=== PATIENT | male | born 1960 | race Caucasian/White ===

== ENCOUNTER 2023-07-18 09:27 | Outpatient (OUT) | payer OTHER, SELFPAY ==
--- NOTE | 2023-07-18 09:45 | XR_ITS ---
The [address] [address] Patient Name: GABRIEL VERDIN MRN: [id number] date: 1960 Sex: M Assigned Patient Location: RAD Current Patient Location: [facility] Accession/Order Number: [id number] Exam Date: 07/18/2023 09:55 Report Date: 07/18/2023 11:06 At the request of: GRANT HARDY Procedure: XR abdomen 1V EXAM: XR abdomen 1V HISTORY: Kidney Stone COMPARISON: None. TECHNIQUE: AP view of the abdomen. FINDINGS: Nonobstructive bowel gas pattern is noted. There is no suspicious calcification. The osseous structures are intact. XR/XR abdomen 1V IMPRESSION: Nonobstructive bowel gas pattern. Electronically authenticated by: BEATRIS JOHNSON Date: 07/18/2023 11:06
== END 2023-07-18 09:28 | disposition home or self-care (01) ==
LOC: RAD 09:36
PROVIDERS: PCP Family Medicine; Visit Provider Urology
DX: N20.0 Calculus of kidney (principal)
CPT/HCPCS: 74018

== ENCOUNTER 2024-01-17 08:30 | Outpatient (OUT) | payer OTHER, SELFPAY ==
[2024-01-17 09:05] LABS: Basophils Absolute Auto 0.1 10^3/uL (0.0-0.1); Basophils Percent Auto 0.8 % (0.2-2.0); Eosinophils Absolute Auto 0.3 10^3/uL (0.0-0.7); Eosinophils Percent Auto 3.4 % (0.9-7.0); Hematocrit 41.6 % (42.0-54.0); Hemoglobin 14.1 g/dL (14.0-18.0); Immature Granulocytes Abs Auto 0.03 10^3/uL (0.00-0.03); Immature Granulocytes Pct Auto 0.3 % (0.0-0.5); Lymphocytes Absolute Auto 1.9 10^3/uL (1.2-3.8); Lymphocytes Percent Auto 21.9 % (20.5-60.0); Mean Corpuscular HGB Conc 33.9 g/dL (29.9-35.2); Mean Corpuscular Hemoglobin 29.3 pg (25.9-34.0); Mean Corpuscular Volume 86.5 fL (80.0-94.0); Mean Platelet Volume 9.7 fL (9.5-13.5); Monocytes Absolute Auto 1.2 10^3/uL (0.3-0.8); Monocytes Percent Auto 13.4 % (1.7-12.0); Neutrophils Absolute Auto 5.2 10^3/uL (1.4-6.5); Neutrophils Percent Auto 60.2 % (43.0-75.0); Platelet Count 222 10^3/uL (150-450); Red Blood Count 4.81 10^6/uL (4.70-6.10); Red Cell Distribution Width 12.4 % (11.0-15.0); White Blood Count 8.7 10^3/uL (4.0-11.0)
[2024-01-17 09:54] LABS: Alanine Aminotransferase 21 U/L (16-63); Albumin Globulin Ratio 0.9; Alkaline Phosphatase 49 U/L (46-116); Anion Gap 11.3; Aspartate Amino Transferase 15 U/L (15-37); BUN Creatinine Ratio 14.9; Bilirubin Total 0.5 mg/dL (0.2-1.0); Carbon Dioxide 27.8 mmol/L (21.0-32.0); Chloride 104 mmol/L (98-107); Chol HDL Ratio 3.9; Cholesterol 209 mg/dL (<=200); Estimated GFR (African America >60 (>=60); Estimated GFR (Non-African Ame >60 (>=60); Globulin 3.3 g/dL; Glucose 97 mg/dL (74-106); HDL Cholesterol 53 mg/dL (40-60); Potassium 4.1 mmol/L (3.5-5.1); Sodium 139 mmol/L (136-145); Total Protein 6.3 g/dL (6.4-8.2); Triglycerides 58 mg/dL (<=150); VLDL CHOLESTEROL 11.6 mg/dL
== END 2024-01-17 08:31 | disposition home or self-care (01) ==
LOC: LAB 08:32
PROVIDERS: PCP Nurse Practitioner; Visit Provider Nurse Practitioner
DX: Z00.00 Encounter for general adult medical examination without abnormal findings (principal); Z12.5 Encounter for screening for malignant neoplasm of prostate
CPT/HCPCS: 36415; 80053; 80061; 85025; G0103

== ENCOUNTER 2024-08-07 10:57 | Outpatient (OUT) | payer OTHER, SELFPAY ==
--- NOTE | 2024-08-07 11:06 | XR_ITS ---
The [address] [address] Patient Name: GABRIEL VERDIN MRN: [id number] date: 1960 Sex: M Assigned Patient Location: [facility] Current Patient Location: Accession/Order Number: [id number] Exam Date: 08/07/2024 11:08 Report Date: 08/09/2024 04:46 At the request of: GRANT HARDY Procedure: XR abdomen 1V EXAMINATION: XR abdomen 1V HISTORY: Kidney Stone COMPARISON: XR abdomen 07/18/2023 FINDINGS: KIDNEY/URETER - RIGHT: No visible renal or ureteral calcifications. KIDNEY/URETER - LEFT: No visible renal or ureteral calcifications. PELVIS: No visible ureteral stone. Stable tiny pelvic calcifications favoring phleboliths. BOWEL: No abnormal dilation or deviation. BONES: No acute abnormality. OTHER: Negative. No abnormal gaseous collections. XR/XR abdomen 1V IMPRESSION: 1. No appreciable urinary tract calculi. Electronically authenticated by: ERNESTO HANLEY Date: 08/09/2024 04:46
== END 2024-08-07 10:58 | disposition home or self-care (01) ==
LOC: RAD 11:00
PROVIDERS: PCP Nurse Practitioner; Visit Provider Urology
DX: N20.0 Calculus of kidney (principal)
CPT/HCPCS: 74018

== ENCOUNTER 2024-08-14 08:09 | Outpatient (OUT) | payer OTHER, SELFPAY ==
--- OUTSIDE RECORDS SUMMARY | 2024-08-14 08:14 | XMS_ITS | CCD ---
Author Organization [facility] Care Team Providers Care Station Inspector Name Role Phone DR ALL ESCUDERO Admitting Unavailable DR ALL ESCUDERO Consulting Unavailable DR ALL ESCUDERO Attending Unavailable OCCOQUAN, DR ELLIOTT Primary Care Unavailable DAYAN, DR ERNESTO Daguherty Consulting Unavailable VLADIMIR DING Primary Care Physician VLADIMIR DING Attending Unavailable VLADIMIR DING Referring Unavailable VLADIMIR DING Primary Care Unavailable VLADIMIR DING Primary Care Unavailable All ESCUDERO Attending Unavailable All ESCUDERO Attending Unavailable VLADIMIR DING Primary Care Unavailable Medications Current Medications Medication Drug Class(es) Dates Sig (Normalized) Sig (Original) tadalafil 20 mg oral tablet (2 sources) Phosphodiesterase 5 Inhibitor Start: 07-26-2023 take 1 tablet by mouth every hour as needed, then take 1 tablet by mouth every twenty-four hours as needed tadalafil 20 mg Tab 20 mg = 1 tab(s), Oral, As Directed, PRN for erectile dysfunction, Take 1 hour prior to sexual intercourse. Do not exceed 20mg within 24 hours., # 30 tab(s), Refills(s) 3, Pharmacy: [id number], 183, cm, 07/26/23 10:13:00 EST, Height/Length Dosing, 72.2, kg, 07/26/23 10:13:00 EST, Weight Dosing Start Date: 07/26/23 Status: Ordered Problems Problem Classification Problem Date Documented Da te Episodic/Chronic Calculus of urinary tract (10 sources) Calculus of kidney; Translations: [History of calculus of kidney] Onset: 02-23-2022 Episodic Genitourinary symptoms and ill-defined conditions (2 sources) Microscopic hematuria; Translations: [Asymptomatic microscopic hematuria] Onset: 07-23-2023 Episodic Hyperplasia of prostate (5 sources) Benign prostatic hyperplasia without lower urinary tract symptoms; Translations: [Benign prostatic hypertrophy without outflow obstruction] Onset: 02-28-2022 Chronic Other male genital disorders (4 sources) Male erectile dysfunction, unspecified; Translations: [Erectile dysfunction] Onset: 07-23-2023 Chronic Other screening for suspected conditions (not mental disorders or infectious disease) (4 sources) Encounter for screening for malignant neoplasm of prostate; Translations: [Screening for malignant neoplasm done] Onset: 07-23-2023 Episodic Unclassified (2 sources) Asymptomatic microscopic hematuria 07-08-2020 Unclassified (2 sources) Patient encounter status 07-23-2023 Unclassified (1 source) Annual Exam Onset: 01-08-2024 Results Test Name Value Interpretation Reference Range Facil [facility] Urology Office/Clinic Noteon 08-10-2024 Urology Office/Clinic Note Urology Office/Clinic Note Chief Complaint 1 year with KUB and PSA HPI Staff 1 year follow up w/PSA & KUB. Pt. C/O getting up 1x at night and mild stop/go stream Previous DX: asymptomatic microscopic hematuria, BPH w/urinary obstruction, ED, HX of kidney stones *Tadalafil 10mg PRN therapy KUB done 08/07/24 PSA 12/07/22 - 0.77 01/17/24 - 1.20 History of Present Illness Tests reviewed: UA, PSA, KUB I have reviewed the previous health record information and history for this patient from Dr. Escudero. I have reviewed and verified the staff HPI to be accurate for this encounter. Review of Systems PHQ Score Initial Depression Screen Score: 0 SCORE ROS - Provider Constitutional: denies weight loss, denies hot flashes. Eyes: denies eye problems. Gastrointestinal: denies nausea, denies vomiting. Cardiovascular: denies chest pain or angina. Integumentary: no dryness Musculoskeletal: denies musculoskeletal symptoms. ENMT: denies otolaryngeal symptoms. Respiratory: no shortness of breath. Heme/Lymph: denies easy bleeding tendency, denies easy bruising tendency. Psychiatric: no confusion, no anxiety. Genitourinary: See HPI. Physical Exam Vitals & Measurements HR: 64(Peripheral) RR: 19 BP: 133/75 HT: 72 in HT: 183 cm WT: 72.7 kg WT: 160.276 lb BMI: 21.71 General Appearance: alert, no distress, well nourished, well developed male. MAGDY ~ 30 g, no nodules. Assessment/Plan 1. Elevated PSA (R97.20: Elevated prostate specific antigen [PSA]) PSA: 07/2020 - 0.59 02/23/22 - 0.60 12/07/22 - 0.77 01/17/24 - 1.20 *had sex the day prior No recent PSA since December since PCP was monitoring annually. Although pt had prostate manipulation the day prior, PSA still elevated/doubled so will monitor more closely. MAGDY ~ 30 g, no nodules. Follow up 1 yr with PSA pending level below or sooner if needed. Pt understands and agrees with plan. -PSA soon (not in 48 hrs due to MAGDY today). If back to baseline, f/u in 1 yr with PSA total. If elevated, f/u sooner, consider MRI. 2. BPH without urinary obstruction (N40.0: Benign prostatic hyperplasia without lower urinary tract symptoms) IPSS 2 (2). Not taking any BPH meds. 3. ED (erectile dysfunction) (N52.9: Male erectile dysfunction, unspecified) Tadalafil 20 mg PRN. 4. Personal history of kidney stones (Z87.442: Personal history of urinary calculi) CT AP w/o Con 06/08/20 - A 2.5 mm stone at the distal L ureter proximal to the terminal ureter and UVJ. Pt had passed a stone. Stone Analysis 07/18/20 - 70% CaOx mono, 30% CaOx di. KUB 12/28/20 - Neg. KUB 02/23/22 - Neg. KUB 07/18/23 - Neg. KUB 08/07/24 - Neg. Reviewed imaging with pt. -KUB in 1 yr. 5. Asymptomatic microscopic hematuria (R31.21: Asymptomatic microscopic hematuria) UA shows moderate blood wo signs of infection. Denies gross hematuria. -Pt knows to notify the office if they were to experiences gross hematuria or clots. As noted the patient is doing well. No change in his voiding pattern. PSA levels are as noted. The PSA had been ordered by PCP back in December and is much higher than it was previously. I stressed the importance of close follow-up in the setting. He does relate that he did have ejaculation within 48 hours of that test which could have influenced it. Will repeat PSA now, free and total. Will subsequently see him again in 1 year with both PSA and KUB. Current abdominal x-ray reveals no evidence of urolithiasis. He agrees with the plan. Negative MAGDY today Viewed UA, ordered KUB , ordered PSA Follow-up With When Contact Information HAYLEY ROSE, All [place], URL [address] [place] [id number] Additional Instructions: 1 yr with PSA pending PSA level soon Patient Education Prostate Cancer Screening I, Bhavani Acevedo, personally scribed for Dr. Escudero on 08/10/2024 08:54:40. . Documentation recorded by the scribe, Bhavani Acevedo, accurately reflects the services(s) I performed and decisions made by me. Authenticated by Dr. Escudero on 08/10/2024 09:01:16. Portions of this record may have been created with voice recognition artificial intelligence software, specifically [employer], [employer] and or [employer]. Substitutions may have occurred due to the inherent limitations of voice recognition and artificial intelligence software. Problem List/Past Medical History Ongoing Asymptomatic microscopic hematuria BPH without urinary obstruction ED (erectile dysfunction) Elevated PSA Kidney stone Personal history of kidney stones Prostate cancer screening Historical No qualifying data Procedure/Surgical History Tonsillectomy. Medications tadalafil 20 mg Tab, 20 mg= 1 tab(s), Oral, As Directed, PRN, 3 refills Allergies No Known Allergies Social History Alcohol - Low Risk, 07/08/2020 Never., 08/07/2024 Substance Abuse Never., 08/07/2024 To (more content not included)... Normal [facility] Comment on above: Result Comment: Electronically Signed By : All ESCUDERO MD\.br\Date and Time Signed: 08/10/24 09:02 EST\.br\Electronically Co-Signed By: Bhavani Acevedo\.br\Date and Time Co-Signed: 08/10/24 08:56 EST XR KUB 1 VIEWon 02-23-2022 XR KUB 1 VIEW EXAMINATION: XR KUB 1 VIEW HISTORY: Kidney stone COMPARISON: XR KUB 12/20/2020 FINDINGS: KIDNEY/URETER - RIGHT: No visible renal or ureteral calcifications. KIDNEY/URETER - LEFT: No visible renal or ureteral calcifications. PELVIS: No visible ureteral stones. Stable left pelvic calcifications compatible with phleboliths. BOWEL: No abnormal dilation or deviation. BONES: No acute abnormality. OTHER: Negative. No abnormal gaseous collections. IMPRESSION: 1. No visible urinary tract calculi. Electronically authenticated by: ERNESTO HANLEY Date: 2022-02-23 15:34 Normal [facility] Vital Signs Date Time Vital Sign Value Performing Clinician Zacarias grewal 08-10-2024 08:28-0500 Blood Pressure Location Abigail Stewart [facility] 08-10-2024 08:28-0500 Diastolic blood pressure 75 mm[Hg] [employer] [facility] 08-10-2024 08:28-0500 Heart rate 64 /min [employer] [facility] 08-10-2024 08:28-0500 Respiratory rate 19 /min [employer] [facility] 08-10-2024 08:28-0500 Systolic blood pressure 133 mm[Hg] [employer] [facility] 07-26-2023 10:09-0500 Blood Pressure Location Abigail Stewart [facility] 07-26-2023 10:09-0500 Diastolic blood pressure 84 mm[Hg] [employer] [facility] 07-26-2023 10:09-0500 Systolic blood pressure 126 mm[Hg] Abigail Stewart [facility] Encounters Encounter Date Encounter Type Care Provider Facility Start: 08-09-2025 ambulatory VLADIMIRRojelio DING Anthonynatalie ty:[facility] Start: 08-10-2024 End: 08-10-2024 ambulatory All ESCUDERO Facility:[facility] Start: 08-10-2024 End: 08-10-2024 Patient encounter procedure All ESCUDERO [facility] Start: 01-08-2024 End: 01-08-2024 ambulatory [facility] Start: 01-08-2024 Encounter for genera l adult medical examination without abnormal findings [facility] Start: 07-26-2023 End: 07-26-2023 Patient encounter procedure All ESCUDERO [facility] Start: 02-23-2022 End: 02-24-[address] ALL ESCUDERO Facility:[facility] Procedures Date Procedure Procedure Detail Performing Clinician Start: 02-23-[address] ROSEANNA ESCUDERO Comment on above: Performed By: #### P SAD #### [facility] [address] [place] [address] Dr. Clayton Kelly Tonsillectomy All ESCUDERO Immunizations Immunization Date Immunization Notes Care Provider Fa cility NEGATED: Highlighted row has not occurred!08-10-2024 influenza virus vaccine, unspecified formulation All ESCUDERO [facility] Payers Date Payer Category Payer Private Health Insurance [id number] 1960 Unknown [id number] 1960 Unknown [id number] 1960 Unknown [id number] 1960 Unknown [id number] 1959 Private Health Insurance [id number] Social History Date Type Detail Facility Tobacco quit 1 year ago Tobacco Use:. Cigarettes, Yes [facility] Tobacco smoking status No Smoking Status Entered [facility] Sex Assigned At Male [facility] Functional Status Date Assessment Result Facility 08-10-2024 Functional Status N/A [facility] 07-26-2023 Functional Status N/A [facility] Hospital Discharge instructions 08-10-2024 Note Date & Type Note Facility 08-10-2024 Hospital Discharge instructions Patient Education 08/10/2024 08:54:24 Prostate Cancer Screening Prostate Cancer Screening Prostate cancer screening is testing that is done to check for the presence of prostate cancer in men. The prostate gland is a walnut-sized gland that is located below the bladder and in front of the rectum in males. The function of the prostate is to add fluid to semen during ejaculation. Prostate cancer is one of the most common types of cancer in men. Who should have prostate cancer screening? Screening recommendations vary based on age and other risk factors, as well as between the professional organizations who make the recommendations. In general, screening is recommended if: You are age 50 to 70 and have an average risk for prostate cancer. You should talk with your health care provider about your need for screening and how often screening should be done. Because most prostate cancers are slow growing and will not cause , screening in this age group is generally reserved for men who have a 10- to 15-year life expectancy. You are younger than age 50, and you have these risk factors: ?Having a father, brother, or uncle who has been diagnosed with prostate cancer. The risk is higher if your family member's cancer occurred at an early age or if you have multiple family members with prostate cancer at an early age. ?Being a male who is Black or is of [place] or sub-Saharan descent. In general, screening is not recommended if: You are younger than age 40. You are between the ages of 40 and 49 and you have no risk factors. You are 70 years of age or older. At this age, the risks that screening can cause are greater than the benefits that it may provide. If you are at high risk for prostate cancer, your health care provider may recommend that you have screenings more often or that you start screening at a younger age. How is screening for prostate cancer done? The recommended prostate cancer screening test is a blood test called the prostate-specific antigen (PSA) test. PSA is a protein that is made in the prostate. As you age, your prostate naturally produces more PSA. Abnormally high PSA levels may be caused by: Prostate cancer. An enlarged prostate that is not caused by cancer (benign prostatic hyperplasia, or BPH). This condition is very common in older men. A prostate gland infection (prostatitis) or urinary tract infection. Certain medicines such as male hormones (like testosterone) or other medicines that raise testosterone levels. A rectal exam may be done as part of prostate cancer screening to help provide information about the size of your prostate gland. When a rectal exam is performed, it should be done after the PSA level is drawn to avoid any effect on the results. Depending on the PSA results, you may need more tests, such as: A physical exam to check the size of your prostate gland, if not done as part of screening. Blood and imaging tests. A procedure to remove tissue samples from your prostate gland for testing (biopsy). This is the only way to know for certain if you have prostate cancer. What are the benefits of prostate cancer screening? Screening can help to identify cancer at an early stage, before symptoms start and when the cancer can be treated more easily. There is a small chance that screening may lower your risk of dying from prostate cancer. The chance is small because prostate cancer is a slow-growing cancer, and most men with prostate cancer from a different cause. What are the risks of prostate cancer screening? The main risk of prostate cancer screening is diagnosing and treating prostate cancer that would never have caused any symptoms or problems. This is called overdiagnosisand overtreatment. PSA screening cannot tell you if your PSA is high due to cancer or a different cause. A prostate biopsy is the only procedure to diagnose prostate cancer. Even the results of a biopsy may not tell you if your cancer needs to be treated. Slow-growing prostate cancer may not need any treatment other than monitoring, so diagnosing and treating it may cause unnecessary stress or other side effects. Questions to ask your health care provider When should I start prostate cancer screening? What is my risk for prostate cancer? How often do I need screening? What type of screening tests do I need? How do I get my test results? What do my results mean? Do I need treatment? Where to find more information The [place] [employer]: www.cancer.org [place] [employer]: www.auanet.org Contact a health care provider if: You have difficulty urinating. You have pain when you urinate or ejaculate. You have blood in your urine or semen. You have pain in your back or in the area of your prostate. Summary Prostate cancer is a common type of cancer in men. The prostate gland is located below the bladder and in front of the rectum. This gland adds fluid to semen during ejaculation. Prostate cancer screening may identify cancer at an early stage, when the cancer can be treated more easily and is less likely to have spread to other areas of the body. The prostate-specific antigen (PSA) test is the recommended screening test for prostate cancer, but it has associated risks. Discuss the risks and benefits of prostate cancer screening with your health care provider. If you are age 70 or older, the risks that screening can cause are greater than the benefits that it may provide. This information is not intended to replace advice given to you by your health care provider. Make sure you discuss any questions you have with your health care provider. Document Revised: 02/12/2022 Document Reviewed: 02/12/2022 [employer] Patient Education 2023 [employer]. Follow Up Care 06/30/2024 08:36:41 With:HAYLEY ROSE, [facility] [place], URL Address: [address] [place] [phone] When: Unknown [facility] Clinical Note 08-10-2024 Note Date & Type Note Facility 08-10-2024 Note Patient Education Oncology Prostate Cancer Screening Prostate cancer screening is testing that is done to check for the presence of prostate cancer in men. The prostate gland is a walnut-sized gland that is located below the bladder and in front of the rectum in males. The function of the prostate is to add fluid to semen during ejaculation. Prostate cancer is one of the most common types of cancer in men. Who should have prostate cancer screening? Screening recommendations vary based on age and other risk factors, as well as between the professional organizations who make the recommendations. In general, screening is recommended if: ??? You are age 50 to 70 and have an average risk for prostate cancer. You should talk with your health care provider about your need for screening and how often screening should be done. Because most prostate cancers are slow growing and will not cause , screening in this age group is generally reserved for men who have a 10- to 15-year life expectancy. ??? You are younger than age 50, and you have these risk factors: ? Having a father, brother, or uncle who has been diagnosed with prostate cancer. The risk is higher if your family member's cancer occurred at an early age or if you have multiple family members with prostate cancer at an early age. ? Being a male who is Black or is of [place] or sub-Saharan descent. In general, screening is not recommended if: ??? You are younger than age 40. ??? You are between the ages of 40 and 49 and you have no risk factors. ??? You are 70 years of age or older. At this age, the risks that screening can cause are greater than the benefits that it may provide. If you are at high risk for prostate cancer, your health care provider may recommend that you have screenings more often or that you start screening at a younger age. How is screening for prostate cancer done? The recommended prostate cancer screening test is a blood test called the prostate-specific antigen (PSA) test. PSA is a protein that is made in the prostate. As you age, your prostate naturally produces more PSA. Abnormally high PSA levels may be caused by: ??? Prostate cancer. ??? An enlarged prostate that is not caused by cancer (benign prostatic hyperplasia, or BPH). This condition is very common in older men. ??? A prostate gland infection (prostatitis) or urinary tract infection. ??? Certain medicines such as male hormones (like testosterone) or other medicines that raise testosterone levels. A rectal exam may be done as part of prostate cancer screening to help provide information about the size of your prostate gland. When a rectal exam is performed, it should be done after the PSA level is drawn to avoid any effect on the results. Depending on the PSA results, you may need more tests, such as: ??? A physical exam to check the size of your prostate gland, if not done as part of screening. ??? Blood and imaging tests. ??? A procedure to remove tissue samples from your prostate gland for testing (biopsy). This is the only way to know for certain if you have prostate cancer. What are the benefits of prostate cancer screening? Screening can help to identify cancer at an early stage, before symptoms start and when the cancer can be treated more easily. ??? There is a small chance that screening may lower your risk of dying from prostate cancer. The chance is small because prostate cancer is a slow-growing cancer, and most men with prostate cancer from a different cause. What are the risks of prostate cancer screening? The main risk of prostate cancer screening is diagnosing and treating prostate cancer that would never have caused any symptoms or problems. This is called overdiagnosisand overtreatment. PSA screening cannot tell you if your PSA is high due to cancer or a different cause. A prostate biopsy is the only procedure to diagnose prostate cancer. Even the results of a biopsy may not tell you if your cancer needs to be treated. Slow-growing prostate cancer may not need any treatment other than monitoring, so diagnosing and treating it may cause unnecessary stress or other side effects. Questions to ask your health care provider ??? When should I start prostate cancer screening? What is my risk for prostate cancer? How often do I need screening? What type of screening tests do I need? How do I get my test results? What do my results mean? Do I need treatment? Where to find more information ??? The [place] [employer]: www.cancer.org ??? [place]: www.auanet.org Contact a health care provider if: ??? You have difficulty urinating. ??? You have pain when you urinate or ejaculate. ??? You have blood in your urine or semen. ??? You have pain in your back or in the area of your prostate. Summary ??? Prostate cancer is a common type of cancer in men. The prostate gland (more content not included)... [facility] Hospital Discharge instructions 07-26-2023 Note Date & Type Note Facility 07-26-2023 Hospital Discharge instructions Patient Education 07/26/2023 10:39:06 Benign Prostatic Hyperplasia Benign Prostatic Hyperplasia Benign prostatic hyperplasia (BPH) is an enlarged prostate gland that is caused by the normal aging process. The prostate may get bigger as a man gets older. The condition is not caused by cancer. The prostate is a walnut-sized gland that is involved in the production of semen. It is located in front of the rectum and below the bladder. The bladder stores urine. The urethra carries stored urine out of the body. An enlarged prostate can press on the urethra. This can make it harder to pass urine. The buildup of urine in the bladder can cause infection. Back pressure and infection may progress to bladder damage and kidney (renal) failure. What are the causes? This condition is part of the normal aging process. However, not all men develop problems from this condition. If the prostate enlarges away from the urethra, urine flow will not be blocked. If it enlarges toward the urethra and compresses it, there will be problems passing urine. What increases the risk? This condition is more likely to develop in men older than 50 years. What are the signs or symptoms? Symptoms of this condition include: Getting up often during the night to urinate. Needing to urinate frequently during the day. Difficulty starting urine flow. Decrease in size and strength of your urine stream. Leaking (dribbling) after urinating. Inability to pass urine. This needs immediate treatment. Inability to completely empty your bladder. Pain when you pass urine. This is more common if there is also an infection. Urinary tract infection (UTI). How is this diagnosed? This condition is diagnosed based on your medical history, a physical exam, and your symptoms. Tests will also be done, such as: A post-void bladder scan. This measures any amount of urine that may remain in your bladder after you finish urinating. A digital rectal exam. In a rectal exam, your health care provider checks your prostate by putting a lubricated, gloved finger into your rectum to feel the back of your prostate gland. This exam detects the size of your gland and any abnormal lumps or growths. An exam of your urine (urinalysis). A prostate specific antigen (PSA) screening. This is a blood test used to screen for prostate cancer. An ultrasound. This test uses sound waves to electronically produce a picture of your prostate gland. Your health care provider may refer you to a specialist in kidney and prostate diseases (urologist). How is this treated? Once symptoms begin, your health care provider will monitor your condition (active surveillance or watchful waiting). Treatment for this condition will depend on the severity of your condition. Treatment may include: Observation and yearly exams. This may be the only treatment needed if your condition and symptoms are mild. Medicines to relieve your symptoms, including: ?Medicines to shrink the prostate. ?Medicines to relax the muscle of the prostate. Surgery in severe cases. Surgery may include: ?Prostatectomy. In this procedure, the prostate tissue is removed completely through an open incision or with a laparoscope or robotics. ?Transurethral resection of the prostate (TURP). In this procedure, a tool is inserted through the opening at the tip of the penis (urethra). It is used to cut away tissue of the inner core of the prostate. The pieces are removed through the same opening of the penis. This removes the blockage. ?Transurethral incision (TUIP). In this procedure, small cuts are made in the prostate. This lessens the prostate's pressure on the urethra. ?Transurethral microwave thermotherapy (TUMT). This procedure uses microwaves to create heat. The heat destroys and removes a small amount of prostate tissue. ?Transurethral needle ablation (TUNA). This procedure uses radio frequencies to destroy and remove a small amount of prostate tissue. ?Interstitial laser coagulation (ILC). This procedure uses a laser to destroy and remove a small amount of prostate tissue. ?Transurethral electrovaporization (TUVP). This procedure uses electrodes to destroy and remove a small amount of prostate tissue. ?Prostatic urethral lift. This procedure inserts an implant to push the lobes of the prostate away from the urethra. Follow these instructions at home: Take [id number] and prescription medicines only as told by your health care provider. Monitor your symptoms for any changes. Contact your health care provider with any changes. Avoid drinking large amounts of liquid before going to bed or out in public. Avoid or reduce how much caffeine or alcohol you drink. Give yourself time when you urinate. Keep all follow-up visits. This is important. Contact a health care provider if: You have unexplained back pain. Your symptoms do not get better with treatment. You develop side effects from the medicine you are taking. Your urine becomes very dark or has a bad smell. Your lower abdomen becomes distended and you have trouble passing urine. Get help right away if: You have a fever or chills. You suddenly cannot urinate. You feel light-headed or very dizzy, or you faint. There are large amounts of blood or clots in your urine. Your urinary problems become hard to manage. You develop moderate to severe low back or flank pain. The flank is the side of your body between the ribs and the hip. These symptoms may be an emergency. Get help right away. Call 911. Do not wait to see if the symptoms will go away. Do not drive yourself to the hospital. Summary Benign prostatic hyperplasia (BPH) is an enlarged prostate that is caused by the normal aging process. It is not caused by cancer. An enlarged prostate can press on the urethra. This can make it hard to pass urine. This condition is more likely to develop in men older than 50 years. Get help right away if you suddenly cannot urinate. This information is not intended to replace advice given to you by your health care provider. Make sure you discuss any questions you have with your health care provider. Document Revised: 03/07/2022 Document Reviewed: 03/07/2022 [employer] 2022 [employer] Follow Up Care 03/02/2022 10:24:32 With:All ESCUDERO MD, URL Address: [address] [place], [place] [id number]- When:Within 1 Year(s) Comments:w/PSA and KUB [facility] Evaluation + Plan note Note Date & Type Note Facility Evaluation + Plan note No data available for this section [facility] Evaluation + Plan note Note Date & Type Note Facility Evaluation + Plan note Future Appointments Appointment Date:08/09/2025 08:15:00 AM Scheduled Provider:All ESCUDERO MD Location:[facility] Appointment Type:URO Office Visit Diagnostic Tests PendingPSA Free & Total 08/10/24 [facility] [place] Progress note Note Date & Type Note Facility Progress note No data available for this section [facility] Summary Purpose Family History No Family History Records Found No data available for this section No Family History Records FoundNo Family History Records Found No data available for this section Advance Directives No Advanced Directives Records FoundNo Advanced Directives Records FoundNo Advanced Directives Records Found Additional Source Comments (unrecognized sect ion and content) No Status Records FoundNo Status Records FoundNo Status Records Found INFORMATION SOURCE (unrecogn ized section and content) DATE CREATED AUTHOR 03/31/2022 [facility] DATE CREATED AUTHOR AUTHOR'S ORGANIZ ATION 01/10/2024 [facility] DATE CREATED AUTHOR AUTHOR'S ORGANIZ ATION 08/12/2024 [facility] Patient Care team informatio n (unrecognized section and content) Personnel Name: VLADIMIR DING CNP Address: Address: [address] [place] [address] Personnel Name: VLADIMIR DING CNP Address: Address: [address] [place], [place] [address] FOR RECORDS PERTAINING TO PATIENTS WHO ARE OR HAVE BEEN ENROLLED IN A CHEMICAL DEPENDENCY/SUBSTANCEABUSE PROGRAM, SOME INFORMATION MAY BE OMITTED. This clinical summary was aggregated from multiple sources. Caution should be exercised in using it in the provision of clinical care. This summary normalizes information from multiple sources, and as a consequence, information in this document may materially change the coding, format and clinical context of patient data. In addition, data may be omitted in some cases. CLINICAL DECISIONS SHOULD BE BASED ON THE PRIMARY CLINICAL RECORDS. [facility] [employer] [facility]. provides no warranty or guarantee of the accuracy or completeness of information in this document.
[2024-08-15 09:11] LABS: Prostate Specific Ag 1.6 ng/mL (0.0-4.0)
== END 2024-08-14 08:10 | disposition home or self-care (01) ==
LOC: LAB 08:10
PROVIDERS: PCP Nurse Practitioner; Visit Provider Urology
DX: R97.20 Elevated prostate specific antigen [PSA] (principal); N40.0 Benign prostatic hyperplasia without lower urinary tract symptoms
CPT/HCPCS: 36415; 84153; 84154

== ENCOUNTER 2024-10-30 08:14 | Outpatient (OUT) | payer OTHER, SELFPAY ==
--- OUTSIDE RECORDS SUMMARY | 2024-10-30 08:29 | XMS_ITS | CCD ---
Author Organization [facility] Care Team Providers Care Retail Shift Supervisor Name Role Phone DR ALL HARDY Admitting Unavailable DR ALL HARDY Consulting Unavailable HAYLEY, DR ALL Gaines Attending Unavailable MINATARE, DR ELLIOTT Primary Care Unavailable DAYAN, DR ERNESTO Daugherty Consulting Unavailable VLADIMIR JORDAN Primary Care Physician VLADIMIR JORDAN Attending Unavailable VLADIMIR JORDAN Referring Unavailable VLADIMIR JORDAN Primary Care Unavailable All HARDY Attending Unavailable VLADIMIR JORDAN Primary Care Unavailable VLADIMIR JORDAN Primary Care Unavailable All HARDY Attending Unavailable VLADIMIR JORDAN Primary Care Unavailable Deborah Vargas Attending Unavailable Julian FACILITIES OPERATIONS TECHNICIANVladimir JAIN Primary Care Provid er Medications Current Medications Medication Drug Class(es) Dates Sig (Normalized) Sig (Original) tadalafil 20 mg oral tablet (5 sources) Phosphodiesterase 5 Inhibitor Start: 07-26-2023 tadalafiL (CIALIS) 20 mg tablet TAKE 1 TABLET BY MOUTH NEEDED do not exceed ONE TABLET within 24 HOURS 11/27/2023 Active Start: 03-02-2022 End: 01-08-2024 tadalafiL (CIALIS) 10 MG tab let Take 1 tablet (10 mg total) by mouth. 03/02/2022 01/08/2024 Discontinued (Dose adjustment) Problems Active Problems Problem Classification Problem Date Documented Da te Episodic/Chronic Calculus of urinary tract (12 sources) Calculus of kidney; Translations: [History of calculus of kidney] Onset: 02-23-2022 Episodic Genitourinary symptoms and ill-defined conditions (2 sources) Microscopic hematuria; Translations: [Asymptomatic microscopic hematuria] Onset: 07-23-2023 Episodic Hyperplasia of prostate (9 sources) Benign prostatic hyperplasia without lower urinary tract symptoms; Translations: [Benign prostatic hypertrophy without outflow obstruction] Onset: 02-28-2022 Chronic Other male genital disorders (6 sources) Male erectile dysfunction, unspecified; Translations: [Erectile dysfunction] Onset: 06-21-2022 Chronic Other screening for suspected conditions (not mental disorders or infectious disease) (5 sources) Encounter for screening for malignant neoplasm of prostate; Translations: [Screening for malignant neoplasm done] Onset: 07-23-2023 Episodic Unclassified (2 sources) Asymptomatic microscopic hematuria 07-08-2020 Unclassified (2 sources) Patient encounter status 07-23-2023 Unclassified (1 source) Annual Exam Onset: 01-08-2024 Past or Other Problems Problem Classification Problem Date Documented Da te Episodic/Chronic Mood disorders (2 sources) Mood disorders Onset: 01-08-2024 01-08-2024 Other and unspecified benign neoplasm (2 sources) Polyp of sigmoid colon; Translations: [Polyp of colon] Onset: 02-01-2023 02-01-2023 Episodic Other diseases of kidney and ureters (2 sources) Cyst of kidney; Translations: [Cyst of kidney, acquired] Onset: 06-21-2022 06-21-2022 Episodic Other gastrointestinal disorders (2 sources) Stool DNA-based colorectal cancer screening positive; Translations: [Other fecal abnormalities] Onset: 01-24-2023 01-24-2023 Episodic Unclassified (2 sources) Onset: 01-02-2023 01-02-2023 Results Test Name Value Interpretation Reference Range [facility] Urology Office/Clinic Noteon 08-10-2024 Urology Office/Clinic Note [...] and history for this patient from Dr. Hardy. I have reviewed and verified the staff [...] Information HAYLEY ROSE, All Gaines, URL [address] [place], [place] [id number]- Additional Instructions: 1 yr with PSA pending PSA level soon Patient Education Prostate Cancer Screening I, Bhavani Acevedo, personally scribed for Dr. Hardy on 08/10/2024 08:54:40. . Documentation recorded by the scribe, Bhavani Acevedo, accurately reflects the services(s) I performed and decisions made by me. Authenticated by Dr. Hardy on 08/10/2024 09:01:16. Portions of this record may have been created with voice recognition artificial intelligence software, specifically [employer], [employer] and or [employer]. Substitutions may have occurred due to the [...] 08/07/2024 To (more content not included)... Normal [facility] Comment on above: Result Comment: Electronically Signed By : All HARDY MD P\.br\Date and Time Signed: 08/10/24 09:02 EST\.br\Electronically Co-Signed By: Bhavani Acevedo P\.br\Date and Time Co-Signed: 08/10/24 08:56 EST XR [...] by: ERNESTO HANLEY Date: 2022-02-23 15:34 Normal [facility] Vital Signs Date Time Vital Sign Value Performing Clinician Facility 08-10-2024 08:28-0500 Blood Pressure Location All HARDY [facility] 08-10-2024 08:28-0500 Diastolic blood pressure 75 mm[Hg] All HARDY [facility] 08-10-2024 08:28-0500 Heart rate 64 /min All HARDY [facility] 08-10-2024 08:28-0500 Respiratory rate 19 /min All HARDY [facility] 08-10-2024 08:28-0500 Systolic blood pressure 133 mm[Hg] All HARDY [facility] 01-08-2024 16:15-0400 Body height 182.9 cm Vladimir Jordan FACILITIES OPERATIONS TECHNICIAN-TREASURY SPECIALIST Work Phone: [facility] 01-08-2024 16:15-0400 Body mass index (BMI) [Ratio] 21.28 kg/m2 Vladimir Jordan FACILITIES OPERATIONS TECHNICIAN-TREASURY SPECIALIST Work Phone: [facility] 01-08-2024 16:15-0400 Body temperature 98.01 [degF] Vladimir Jordan FACILITIES OPERATIONS TECHNICIAN-TREASURY SPECIALIST Work Phone: [facility] 01-08-2024 16:15-0400 Body weight 71.17 kg Vladimir Jordan FACILITIES OPERATIONS TECHNICIAN-TREASURY SPECIALIST Work Phone: [facility] 01-08-2024 16:15-0400 Diastolic blood pressure 64 mm[Hg] Vladimir Jordan FACILITIES OPERATIONS TECHNICIAN-TREASURY SPECIALIST Work Phone: [facility] 01-08-2024 16:15-0400 Heart rate 78 /min Vladimir Jordan FACILITIES OPERATIONS TECHNICIAN-TREASURY SPECIALIST Work Phone: [facility] 01-08-2024 16:15-0400 Respiratory rate 16 /min Vladimir Jordan FACILITIES OPERATIONS TECHNICIAN-TREASURY SPECIALIST Work Phone: [facility] 01-08-2024 16:15-0400 SaO2% (BldA) [Mass fraction] 94 % Vladimir Jordan FACILITIES OPERATIONS TECHNICIAN-TREASURY SPECIALIST Work Phone: [facility] 01-08-2024 16:15-0400 Systolic blood pressure 138 mm[Hg] Vladimir Jordan FACILITIES OPERATIONS TECHNICIAN-TREASURY SPECIALIST Work Phone: [facility] 07-26-2023 10:09-0500 Blood Pressure Location All HARDY [facility] 07-26-2023 10:09-0500 Diastolic blood pressure 84 mm[Hg] All HARDY [facility] 07-26-2023 10:09-0500 Systolic blood pressure 126 mm[Hg] All HAYLEY [facility] Encounters Encounter Date Encounter Type Care Provider Facility Start: 08-09-2025 ambulatory All HARDY Facility :[facility] Start: 11-06-2024 ambulatory VLADIMIR JORDAN Facili ty: [facility] Start: 08-10-2024 End: 08-10-2024 ambulatory VLADIMIR JORDAN Facility: [facility] Start: 08-10-2024 End: 08-10-2024 Patient encounter procedure All HARDY [facility] Start: 01-20-2024 End: 01-20-2024 Telephone encounter Xiomy Jackson CMA [facility] Internal Medicine - Family Medicine Start: 01-08-2024 End: 01-08-2024 ambulatory [facility] Start: 01-08-2024 Encounter for genera l adult medical examination without abnormal findings [facility] Start: 01-08-2024 End: 01-08-2024 Patient encounter procedure Vladimir Long Jordan FACILITIES OPERATIONS TECHNICIAN-TREASURY SPECIALIST Work Phone: [facility] Work Phone: Start: 01-08-2024 End: 01-08-2024 Periodic preventive med est patient 40-64yrs Vladimir Jordan FACILITIES OPERATIONS TECHNICIAN-TREASURY SPECIALIST Work Phone: [facility] Internal Medicine - Family Medicine Comment on above: Annual physical exam (Primary Dx); Blood tests for routine general physical examination; Encounter for screening for malignant neoplasm of prostate Start: 01-08-2024 End: 01-08-2024 [facility] FACILITIES OPERATIONS TECHNICIAN-TREASURY SPECIALIST Work Phone: [facility] Start: 07-26-2023 End: 07-26-2023 Patient encounter procedure All HARDY [facility] Start: 02-23-2022 End: 02-24-[address] ALL HARDY Facility:[facility] Procedures Date Procedure Procedure Detail Performing Clinician Start: 01-08-2024 Adult depression scr eening assessment Vladimir Jordan FACILITIES OPERATIONS TECHNICIAN-TREASURY SPECIALIST Work Phone: Start: 02-01-2023 Colonoscopy Vladimir esposito FACILITIES OPERATIONS TECHNICIAN-TREASURY SPECIALIST Work Phone: Start: 02-23-[address] ROSEANNA HARDY Comment on above: Performed By: #### P SAD #### [facility] [address] [place] [address] Dr. Clayton Kelly Tonsillectomy All HARDY Plan of Treatment Date Care Activity Detail Author Start: 02-01-2026 Screening for malign ant neoplasm of colon Colonoscopy [facility] Start: 01-13-2025 End: 01-13-2025 Patient encounter procedure 01/13/2025 4:00 PM EDT [facility] [address] [place] [address] Vladimir Jordan, FACILITIES OPERATIONS TECHNICIAN-[facility] [address] [place] [address] [facility] - [facility] Start: 01-07-2025 Adult BMI Screening Adult BMI Screen ing [facility] Start: 01-07-2025 Depression Screening Depression Scre ening [facility] Start: 01-07-2025 Tobacco Screening Tobacco Screening [facility] Start: 05-03-2024 Influenza vaccination Influenza Vacc ine [facility] Start: 2010 Administration of varicella zoster vaccine Zoster (Shingles) Vaccine (1 of 2) [facility] Start: 1979 DTaP,Tdap and Td Vaccines (1 - Tdap) DTaP,Tdap and Td Vaccines (1 - Tdap) [employer] End: 01-07-2025 CBC W Auto Differential panel - Blood CBC auto differential Lab Routine Blood tests for routine general physical examination 1 Occurrences starting 01/08/2024 until 01/07/2025 [employer] Work Phone: Comment on above: 1 Occurrences starti ng 01/08/2024 until 01/07/2025 End: 01-07-2025 Comprehensive metabolic 2000 panel - Serum or Plasma Comprehensive metabolic panel Lab Routine Blood tests for routine general physical examination 1 Occurrences starting 01/08/2024 until 01/07/2025 [employer] Comment on above: 1 Occurrences starti ng 01/08/2024 until 01/07/2025 End: 01-07-2025 Lipid 1996 panel - Serum or Plasma Lipid profile Lab Routine Blood tests for routine general physical examination 1 Occurrences starting 01/08/2024 until 01/07/2025 [employer] Comment on above: 1 Occurrences starti ng 01/08/2024 until 01/07/2025 End: 01-07-2025 Prostatic specific antigen screen Prostatic specific antigen screen Lab Routine Encounter for screening for malignant neoplasm of prostate 1 Occurrences starting 01/08/2024 until 01/07/2025 [employer] Comment on above: 1 Occurrences starti ng 01/08/2024 until 01/07/2025 Immunizations Immunization Date Immunization Notes Care Provider Mat membreno NEGATED: Highlighted row has not occurred!08-10-2024 influenza virus vaccine, unspecified formulation All HARDY [facility] Payers Date Payer Category Payer Private Health Insurance [id number] 1960 Unknown [id number] 1960 Unknown [id number] 1960 Unknown [id number] 1960 Unknown [id number] 1960 Unknown [id number] 1959 Private Health Insurance [id number] Private Health Insurance CIGMYAR Kelly YDSB-SFB-PDALLHA PLAN [id number] Effective for all dates [phone] [id number] [place] [address] [id number] Social History Date Type Detail Facility Tobacco quit 1 year ago Tobacco Use:. Cigarettes, Yes [facility] Tobacco smoking status No Smokin g Status Entered [facility] Start: 01-08-2024 Sex Assigned At Male F [facility] Start: 01-08-2024 Tobacco smoking stat [facility] Ex-smoker [facility] History of tobacco use Current smoker [facility] History of tobacco use Cigarette Smoker P [facility] Start: 01-08-2024 Tobacco use and exposure Former smokeless tobacco user [facility] History of tobacco use Chews Tobacco [facility] Start: 01-08-2024 Alcoholic beverage intake Ex-drinker (finding) [facility] Start: 01-08-2024 History of Social function [facility] Adolescent depressio n screening assessment 0 [facility] Start: 01-31-2023 Alcohol Comment very rare [facility] Start: 1960 Sex assigned at Not on file P [facility] Functional Status Date Assessment Result Facility 08-10-2024 Functional Status N/A [facility] 07-26-2023 Functional Status N/A [facility] Clinical Notes 07-26-2023 to 08-10-2024 Telephone Encounter - Xiomy Jackson CMA - 01/20/2024 11:14 AM EDTTelephone Encounter - Mackenzie Woods - 01/20/2024 11:14 AM EDTTelephone Encounter - Mackenzie Woods - 01/20/2024 11:14 AM EDT Note Date & Type Note Facility 08-10-2024 [...] treatment? Where to find more information The [place] [employer]: www.cancer.org [place] [employer]: www.auanet.org Contact a health care [...] provider. Document Revised: 02/12/2022 Document Reviewed: 02/12/2022 [employer] Patient Education 2023 [employer]. Follow Up Care 06/30/2024 08:36:41 With:HAYLEY ROSE, All Gaines, URL Address: [facility] [place] [id number]- When: Unknown [facility] 08-10-2024 Note Patient Education Oncology Prostate Cancer [...] Where to find more information ??? The [place] [employer]: www.cancer.org ??? [place] [employer]: www.auanet.org Contact a health care [...] The prostate gland (more content not included)... [facility] 01-20-2024 Miscellaneous Notes ----- Message from CHELLE Jin sent at 01/20/2024 9:47 AM EDT ----- Reviewed. Inform patient cholesterol and LDL (bad cholesterol) is mildly elevated. Consider a diet lower in cholesterol and fats. Increase daily fiber intake. Patient notified and understands documented in this encounter [facility] 01-20-2024 Telephone encounter Note ----- Message from CHELLE Jin sent at 01/20/2024 9:47 AM EDT ----- Reviewed. Inform patient cholesterol and LDL (bad cholesterol) is mildly elevated. Consider a diet lower in cholesterol and fats. Increase daily fiber intake. [employer] [facility] 01-20-2024 Telephone encounter Note Patient notified and understands [employer] 01-08-2024 History of Present illness Narrative Images from the original note were not included. [address] [place] [address] SUBJECTIVE: Patient ID: Gabriel Harman is a 63 y.o. male. Chief Complaint Patient presents with Annual Exam Presents for yearly annual exam He is . Quit smoking 2 years ago. Annual Exam Pertinent negatives include no chest pain, chills, coughing, fatigue, fever or headaches. The following portions of the patient's history were reviewed and updated as appropriate: allergies, current medications, past family history, past medical history, past social history, past surgical history and problem list. Past Surgical History: Procedure Laterality Date COLONOSCOPY COLONOSCOPY N/A 02/01/2023 Performed by Jose Puckett DO at [facility] TONSILLECTOM[facility] Past Medical History: Diagnosis Date Dental disease ED (erectile dysfunction) Kidney stone Visual impairment There is no immunization history on file for this patient. REVIEW OF SYSTEMS: Review of Systems Constitutional: Negative for chills, fatigue and fever. HENT: Negative for hearing loss and trouble swallowing. Eyes: Negative for pain and visual disturbance. Respiratory: Negative for cough, chest tightness and shortness of breath. Cardiovascular: Negative for chest pain, palpitations and leg swelling. Gastrointestinal: Negative for blood in stool. Endocrine: Negative for polydipsia, polyphagia and polyuria. Genitourinary: Negative for difficulty urinating, dysuria, flank pain, hematuria, scrotal swelling and testicular pain. Musculoskeletal: Negative. Skin: Negative. Allergic/Immunologic: Negative. Neurological: Negative for seizures, syncope and headaches. Hematological: Does not bruise/bleed easily. Psychiatric/Behavioral: Negative. PHYSICAL EXAMINATION: Vitals: 01/08/24 1615 BP: 138/64 BP Site: Left Arm BP Postition: Sitting Pulse: 78 Resp: 16 Temp: 36.7 C (98 F) TempSrc: Oral SpO2: 94% Weight: 71.2 kg (156 lb 14.4 oz) Height: 182.9 cm (6') Physical Exam Vitals and nursing note reviewed. Constitutional: General: He is not in acute distress. Appearance: He is well-developed. HENT: Head: Normocephalic and atraumatic. Right Ear: Tympanic membrane and external ear normal. Left Ear: Tympanic membrane and external ear normal. Nose: Nose normal. Mouth/Throat: Mouth: Mucous membranes are moist. Pharynx: No oropharyngeal exudate. Eyes: General: No scleral icterus. Right eye: No discharge. Left eye: No discharge. Conjunctiva/sclera: Conjunctivae normal. Pupils: Pupils are equal, round, and reactive to light. Neck: Vascular: No JVD. Cardiovascular: Rate and Rhythm: Normal rate and regular rhythm. Heart sounds: Normal heart sounds. No murmur heard. No friction rub. No gallop. Pulmonary: Effort: Pulmonary effort is normal. No respiratory distress. Breath sounds: Normal breath sounds. Chest: Chest wall: No tenderness. Abdominal: General: Bowel sounds are normal. There is no distension. Palpations: Abdomen is soft. There is no mass. Tenderness: There is no abdominal tenderness. There is no guarding or rebound. Hernia: No hernia is present. Musculoskeletal: General: No tenderness. Normal range of motion. Cervical back: Normal range of motion and neck supple. Lymphadenopathy: Cervical: No cervical adenopathy. Skin: General: Skin is warm and dry. Capillary Refill: Capillary refill takes less than 2 seconds. Findings: No rash. Neurological: Mental Status: He is alert and oriented to person, place, and time. Deep Tendon Reflexes: Reflexes are normal and symmetric. Psychiatric: Mood and Affect: Mood normal. Behavior: Behavior normal. Thought Content: Thought content normal. Judgment: Judgment normal. ASSESSMENT/PLAN: Gabriel was seen today for annual exam. Diagnoses and all orders for this visit: Annual physical exam Blood tests for routine general physical examination - Cancel: Comprehensive metabolic panel; Future - Cancel: CBC auto differential; Future - Cancel: Lipid profile; Future - CBC auto differential; Future - Comprehensive metabolic panel; Future - Lipid profile; Future Encounter for screening for malignant neoplasm of prostate - Cancel: Prostatic specific antigen screen; Future - Prostatic specific antigen screen; Future Colonoscopy screening discussed today. Risk and benefits of procedure explained. Patient 2022. Recommendations repeat in 3 years. Yearly wellness labs ordered today. Lab requisitions provided. ALL QUESTIONS ANSWERED Total time spent was 30 minutes: Preparing to see the patient (e.g., review of tests) Obtaining and/or reviewing separately obtained history Performing a medically appropriate examination and/or evaluation Counseling and educating the patient/family/caregiver Ordering medications, tests, or procedures Follow-up: One year CHELLE Jin 01/08/24 1648 documented in this encounter [facility] 07-26-2023 Hospital Discharge instructions Patient Education 07/26/2023 [...] urethra. Follow these instructions at home: Take [id number] and prescription medicines only as told by [...] provider. Document Revised: 03/07/2022 Document Reviewed: 03/07/2022 [employer] Patient Education 2022 [employer] Follow Up Care 03/02/2022 10:24:32 With:All HARDY MD, URL Address: [address] [place] [address]- When:Within 1 Year(s) Comments:w/PSA and KUB [facility] Evaluation + Plan note No data available for this section [facility] Evaluation + Plan note Future Appointments Appointment Date:08/09/2025 08:15:00 AM Scheduled Provider:All HARDY MD Location:[facility] Appointment Type:URO Office Visit Diagnostic Tests PendingPSA Free & Total 08/10/24 [facility] Evaluation note Diagnosis Annual physical exam- Primary Routine general medical examination at a health care facility Blood tests for routine general physical examination Laboratory examination ordered as part of a routine general medical examination Encounter for screening for malignant neoplasm of prostate documented in this encounter [facility] System[facility]* Attachments The following attachments cannot be sent through Care Everywhere. * Yearly Physical for Adults (Danish) * Prostate cancer screening (PSA tests) (Danish) documented in [facility] SystemInstructionsNot on file documented in this encounterProMagruder Hospital SystemProgress note No data available for this section [facility] Summary Purpose Family History No Family History Records Found No data available for this section No Family History Records Found No data available for this section No Family History Records Found Advance Directives No Advanced Directives Records FoundNo Advanced Directives Records FoundNo Advanced Directives Records Found Additional Source Comments (unrecognized sect ion and content) No Status Records FoundNo Status Records FoundNo Status Records Found INFORMATION SOURCE (unrecogn ized section and content) DATE CREATED AUTHOR 03/31/2022 [facility] DATE CREATED AUTHOR AUTHOR'S ORGANIZ ATION 01/10/2024 [facility] DATE CREATED AUTHOR AUTHOR'S ORGANIZ ATION 08/19/2024 [facility] Patient Care team informatio n (unrecognized section and content) Retail Shift Supervisor Relationship Specialty Start Date End Date Vladimir Jordan APRN-LUIGI [address] [place] [id number] PCP - General Family Medicine 07/18/22 Retail Shift Supervisor Relationship Specialty Start Date End Date Vladimir Jordan APRN-CNP [address] [place] [address] PCP - General Family Medicine 07/18/22 Reason for Visit (unrecogniz ed section and content) Reason Comments Annual Exam FOR RECORDS PERTAINING TO PATIENTS WHO ARE [...] BE BASED ON THE PRIMARY CLINICAL RECORDS. [employer] provides no warranty or guarantee of the accuracy or completeness of information in this document.
[2024-10-31 04:07] LABS: PSA, Free 0.29 ng/mL; Prostate Specific Ag 1.3 ng/mL (0.0-4.0)
== END 2024-10-30 08:15 | disposition home or self-care (01) ==
LOC: LAB 08:16
PROVIDERS: PCP Nurse Practitioner; Visit Provider Urology
DX: R97.20 Elevated prostate specific antigen [PSA] (principal)
CPT/HCPCS: 36415; 84153; 84154

== ENCOUNTER 2025-01-22 08:40 | Outpatient (OUT) | payer OTHER, SELFPAY ==
--- OUTSIDE RECORDS SUMMARY | 2025-01-13 15:52 | XMS_ITS ---
Author Organization [facility] Care Team Providers Care [employer] Technician Name Role Phone VLADIMIR DING Attending Unavailable VLADIMIR DING Referring Unavailable VLADIMIR DING Primary Care Unavailable VLADIMIR DING Primary Care Unavailable All ESCUDERO Attending Unavailable Deborah Vargas Attending Unavailable VLADIMIR DING Primary Care Unavailable Purpose PROBLEMS DATE TYPE CONDITION / CODE ATTENDING STATUS [facility] 01/13/2025 Unknown Encounter for ge neral adult medical examination without abnormal findings / Z00.00(ICD-10) VLADIMIR DING [facility] 01/13/2025 Unknown Encounter for screening for malignant neoplasm of prostate / Z12.5(ICD-10) DING, VLADIMIR [facility] 01/13/2025 Unknown Encounter for screening for other viral diseases / Z11.59(ICD-10) [facility] 01/13/2025 Unknown well person / UNK(Unknown) ARYAN DINGERIE [facility] PROCEDURES No Procedure Records Found VITAL SIGNS No Vital Signs Records Found RESULTS AMBULATORY VISIT SUMMARY Observed: 11/06 8:42 AM Status: F Source: [facility] Ambulatory Visit Summary GABRIEL VERDIN :1960 Visit Date:11/06/2024 Ambulatory Visit Instructions Your Diagnosis Elevated PSA BPH without urinary obstruction ED (erectile dysfunction) Personal history of kidney stones Asymptomatic microscopic hematuria Your Care Team Attending Physician - Sam SENIOR SCIENCE CONSULTANT, FURNACE PUNCHER-CDeborah X Primary Care Physician - VLADIMIR DING CNP This Is Your Medications List Contact prescribing physician if questions or concerns tadalafil (tadalafil 20 mg Tab) Procedures Performed Tonsillectomy. Discharge Vitals Heart Rate (Peripheral) 68 Respiratory Rate 16 Blood Pressure 150/93 Height 183 cm Height 72 in Weight 72 kg Weight 158.733 lb BMI 21.5 What to do next Scheduled Follow-Up Appointments Saturday 9:40 AM EDT With: SIGRID LORENZ PA-C Where: [facility] [address] [place] [address] [place] [address]- Saturday 8:15 AM EST With: All ESCUDERO MD Where: [facility] [address] [place] [address]- Medications What How Much When Instructions Unchanged tadalafil (tadalafil 20 mg Tab) 1 Tablets By Mouth As Directed as needed for for erectile dysfunction Take 1 hour prior to sexual intercourse. Do not exceed 20mg within 24 hours. Contact prescribing physician if questions or concerns Allergies No Known Allergies Problems Ongoing - Any problem that you are currently receiving treatment for. Asymptomatic microscopic hematuria BPH without urinary obstruction ED (erectile dysfunction) Elevated PSA Kidney stone Personal history of kidney stones Prostate cancer screening Patient Survey You may receive a survey via text or e-mail asking about your office visit. Please share your experience with us by completing your survey. We appreciate your feedback and thank you for choosing us for your care. Education Materials Prostate Cancer Screening Prostate cancer screening is [...] Where to find more information ??? The [place] [employer]: www.cancer.org ??? [place] [employer]: www.auanet.org Contact a health care [...] gland adds fluid to semen during ejaculation. ??? Prostate cancer screening may identify cancer at an early stage, when the cancer can be treated more easily and is less likely to have spread to other areas of the body. ??? The prostate-specific antigen (PSA) test is the recommended screening test for prostate cancer, but it has associated risks. ??? Discuss the risks and benefits of prostate [...] provider. Document Revised: 02/12/2022 Document Reviewed: 02/12/2022 [employer] Patient Education ??? 2023 [employer] Hematuria, Adult Hematuria is blood in the urine. Blood may be visible in the urine, or it may be identified with a test. This condition can be caused by infections of the bladder, urethra, kidney, or prostate. Other possible causes include: ??? Kidney stones. ??? Cancer of the urinary tract. ??? Too much calcium in the urine. ??? Conditions that are passed from parent to child (inherited conditions). ??? Exercise that requires a lot of energy. Infections can usually be treated with medicine, and a kidney stone usually will pass through your urine. If neither of these is the cause of your hematuria, more tests may be needed to identify the cause of your symptoms. It is very important to tell your health care provider about any blood in your urine, even if it is painless or the blood stops without treatment. Blood in the urine, when it happens and then stops and then happens again, can be a symptom of a very serious condition, including cancer. There is no pain in the initial stages of many urinary cancers. Follow these instructions at home: Medicines ??? Take syul-vbq-qsxfjij and prescription medicines only as told by your health care provider. ??? If you were prescribed an antibiotic medicine, take it as told by your health care provider. Do not stop taking the antibiotic even if you start to feel better. Eating and drinking ??? Drink enough fluid to keep your urine pale yellow. It is recommended that you drink 3???4 quarts (2.8???3.8 L) a day. If you have been diagnosed with an infection, drinking cranberry juice in addition to large amounts of water is recommended. ??? Avoid caffeine, tea, and carbonated beverages. These tend to irritate the bladder. ??? Avoid alcohol because it may irritate the prostate (in males). General instructions ??? If you have been diagnosed with a kidney stone, follow your health care provider's instructions about straining your urine to catch the stone. ??? Empty your bladder often. Avoid holding urine for long periods of time. ??? If you are female: ? After a bowel movement, wipe from front to back and use each piece of toilet paper only once. ? Empty your bladder before and after sex. ??? Pay attention to any changes in your symptoms. Tell your health care provider about any changes or any new symptoms. ??? It is up to you to get the results of any tests. Ask your health care provider, or the department that is doing the test, when your results will be ready. ??? Keep all follow-up visits. This is important. Contact a health care provider if: ??? You develop back pain. ??? You have a fever or chills. ??? You have nausea or vomiting. ??? Your symptoms do not improve after 3 days. ??? Your symptoms get worse. Get help right away if: ??? You develop severe vomiting and are unable to take medicine without vomiting. ??? You develop severe pain in your back or abdomen even though you are taking medicine. ??? You pass a large amount of blood in your urine. ??? You pass blood clots in your urine. ??? You feel very weak or like you might faint. ??? You faint. Summary ??? Hematuria is blood in the urine. It has many possible causes. ??? It is very important that you tell your health care provider about any blood in your urine, even if it is painless or the blood stops without treatment. ??? Take vdnb-tvr-vkrczgz and prescription medicines only as told by your health care provider. ??? Drink enough fluid to keep your urine pale yellow. This information is not intended to replace advice given to you by your health care provider. Make sure you discuss any questions you have with your health care provider. Document Revised: 04/19/2021 Document Reviewed: 04/19/2021 [employer] Patient Education ??? 2023 [employer] Erectile Dysfunction Erectile dysfunction (ED) is the inability to get or keep an erection in order to have sexual intercourse. ED is considered a symptom of an underlying disorder and is not considered a disease. ED may include: ??? Inability to get an erection. ??? Lack of enough hardness of the erection to allow penetration. ??? Loss of erection before sex is finished. What are the causes? This condition may be caused by: ??? Physical causes, such as: ? Artery problems. This may include heart disease, high blood pressure, atherosclerosis, and diabetes. ? Hormonal problems, such as low testosterone. ? Obesity. ? Nerve problems. This may include back or pelvic injuries, multiple sclerosis, Parkinson's disease, spinal cord injury, and stroke. ??? Certain medicines, such as: ? Pain relievers. ? Antidepressants. ? Blood pressure medicines and water pills (diuretics). ? Cancer medicines. ? Antihistamines. ? Muscle relaxants. ??? Lifestyle factors, such as: ? Use of drugs such as marijuana, cocaine, or opioids. ? Excessive use of alcohol. ? Smoking. ? Lack of physical activity or exercise. ??? Psychological causes, such as: ? Anxiety or stress. ? Sadness or depression. ? Exhaustion. ? Fear about sexual performance. ? Guilt. What are the signs or symptoms? Symptoms of this condition include: ??? Inability to get an erection. ??? Lack of enough hardness of the erection to allow penetration. ??? Loss of the erection before sex is finished. ??? Sometimes having normal erections, but with frequent unsatisfactory episodes. ??? Low sexual satisfaction in either partner due to erection problems. ??? A curved penis occurring with erection. The curve may cause pain, or the penis may be too curved to allow for intercourse. ??? Never having nighttime or morning erections. How is this diagnosed? This condition is often diagnosed by: ??? Performing a physical exam to find other diseases or specific problems with the penis. ??? Asking you detailed questions about the problem. ??? Doing tests, such as: ? Blood tests to check for diabetes mellitus or high cholesterol, or to measure hormone levels. ? Other tests to check for underlying health conditions. ? An ultrasound exam to check for scarring. ? A test to check blood flow to the penis. ??? Doing a sleep study at home to measure nighttime erections. How is this treated? This condition may be treated by: ??? Medicines, such as: ? Medicine taken by mouth to help you achieve an erection (oral medicine). ? Hormone replacement therapy to replace low testosterone levels. ? Medicine that is injected into the penis. Your health care provider may instruct you how to give yourself these injections at home. ? Medicine that is delivered with a short applicator tube. The tube is inserted into the opening at the tip of the penis, which is the opening of the urethra. A tiny pellet of medicine is put in the urethra. The pellet dissolves and enhances erectile function. This is also called MUSE (medicated urethral system for erections) therapy. ??? Vacuum pump. This is a pump with a ring on it. The pump and ring are placed on the penis and used to create pressure that helps the penis become erect. ??? Penile implant surgery. In this procedure, you may receive: ? An inflatable implant. This consists of cylinders, a pump, and a reservoir. The cylinders can be inflated with a fluid that helps to create an erection, and they can be deflated after intercourse. ? A semi-rigid implant. This consists of two silicone rubber rods. The rods provide some rigidity. They are also flexible, so the penis can both curve downward in its normal position and become straight for sexual intercourse. ??? Blood vessel surgery to improve blood flow to the penis. During this procedure, a blood vessel from a different part of the body is placed into the penis to allow blood to flow around (bypass) damaged or blocked blood vessels. ??? Lifestyle changes, such as exercising more, losing weight, and quitting smoking. Follow these instructions at home: Medicines ??? Take pdqu-jpi-dnzarun and prescription medicines only as told by your health care provider. Do not increase the dosage without first discussing it with your health care provider. ??? If you are using self-injections, do injections as directed by your health care provider. Make sure you avoid any veins that are on the surface of the penis. After giving an injection, apply pressure to the injection site for 5 minutes. ??? Talk to your health care provider about how to prevent headaches while taking ED medicines. These medicines may cause a sudden headache due to the increase in blood flow in your body. General instructions ??? Exercise regularly, as directed by your health care provider. Work with your health care provider to lose weight, if needed. ??? Do not use any products that contain nicotine or tobacco. These products include cigarettes, chewing tobacco, and vaping devices, such as e-cigarettes. If you need help quitting, ask your health care provider. ??? Before using a vacuum pump, read the instructions that come with the pump and discuss any questions with your health care provider. ??? Keep all follow-up visits. This is important. Contact a health care provider if: ??? You feel nauseous. ??? You are vomiting. ??? You get sudden headaches while taking ED medicines. ??? You have any concerns about your sexual health. Get help right away if: ??? You are taking oral or injectable medicines and you have an erection that lasts longer than 4 hours. If your health care provider is unavailable, go to the nearest emergency room for evaluation. An erection that lasts much longer than 4 hours can result in permanent damage to your penis. ??? You have severe pain in your groin or abdomen. ??? You develop redness or severe swelling of your penis. ??? You have redness spreading at your groin or lower abdomen. ??? You are unable to urinate. ??? You experience chest pain or a rapid heartbeat (palpitations) after taking oral medicines. These symptoms may represent a serious problem that is an emergency. Do not wait to see if the symptoms will go away. Get medical help right away. Call your local emergency services (911 in the [place] Do not drive yourself to the hospital. Summary ??? Erectile dysfunction (ED) is the inability to get or keep an erection during sexual intercourse. ??? This condition is diagnosed based on a physical exam, your symptoms, and tests to determine the cause. Treatment varies depending on the cause and may include medicines, hormone therapy, surgery, or a vacuum pump. ??? You may need follow-up visits to make sure that you are using your medicines or devices correctly. ??? Get help right away if you are taking or injecting medicines and you have an erection that lasts longer than 4 hours. This information is not intended to replace advice given to you by your health care provider. Make sure you discuss any questions you have with your health care provider. Document Revised: 11/15/2021 Document Reviewed: 11/15/2021 [employer] Patient Education ??? 2023 [employer] Benign Prostatic Hyperplasia Benign prostatic hyperplasia (BPH) [...] or symptoms? Symptoms of this condition include: ??? Getting up often during the night to urinate. ??? Needing to urinate frequently during the day. ??? Difficulty starting urine flow. ??? Decrease in size and strength of your urine stream. ??? Leaking (dribbling) after urinating. ??? Inability to pass urine. This needs immediate treatment. ??? Inability to completely empty your bladder. ??? Pain when you pass urine. This is more common if there is also an infection. ??? Urinary tract infection (UTI). How is this diagnosed? This condition is diagnosed based on your medical history, a physical exam, and your symptoms. Tests will also be done, such as: ??? A post-void bladder scan. This measures any amount of urine that may remain in your bladder after you finish urinating. ??? A digital rectal exam. In a rectal exam, your health care provider checks your prostate by putting a lubricated, gloved finger into your rectum to feel the back of your prostate gland. This exam detects the size of your gland and any abnormal lumps or growths. ??? An exam of your urine (urinalysis). ??? A prostate specific antigen (PSA) screening. This is a blood test used to screen for prostate cancer. ??? An ultrasound. This test uses sound waves [...] severity of your condition. Treatment may include: ??? Observation and yearly exams. This may be the only treatment needed if your condition and symptoms are mild. ??? Medicines to relieve your symptoms, including: ? Medicines to shrink the prostate. ? Medicines to relax the muscle of the prostate. ??? Surgery in severe cases. Surgery may include: ? Prostatectomy. In this procedure, the prostate tissue is removed completely through an open incision or with a laparoscope or robotics. ? Transurethral resection of the prostate (TURP). In this procedure, a tool is inserted through the opening at the tip of the penis (urethra). It is used to cut away tissue of the inner core of the prostate. The pieces are removed through the same opening of the penis. This removes the blockage. ? Transurethral incision (TUIP). In this procedure, small cuts are made in the prostate. This lessens the prostate's pressure on the urethra. ? Transurethral microwave thermotherapy (TUMT). This procedure uses microwaves to create heat. The heat destroys and removes a small amount of prostate tissue. ? Transurethral needle ablation (TUNA). This procedure uses radio frequencies to destroy and remove a small amount of prostate tissue. ? Interstitial laser coagulation (ILC). This procedure uses a laser to destroy and remove a small amount of prostate tissue. ? Transurethral electrovaporization (TUVP). This procedure uses electrodes to destroy and remove a small amount of prostate tissue. ? Prostatic urethral lift. This procedure inserts an implant to push the lobes of the prostate away from the urethra. Follow these instructions at home: ??? Take ltnj-bqu-gdpycqq and prescription medicines only as told by your health care provider. ??? Monitor your symptoms for any changes. Contact your health care provider with any changes. ??? Avoid drinking large amounts of liquid before going to bed or out in public. ??? Avoid or reduce how much caffeine or alcohol you drink. ??? Give yourself time when you urinate. ??? Keep all follow-up visits. This is important. Contact a health care provider if: ??? You have unexplained back pain. ??? Your symptoms do not get better with treatment. ??? You develop side effects from the medicine you are taking. ??? Your urine becomes very dark or has a bad smell. ??? Your lower abdomen becomes distended and you have trouble passing urine. Get help right away if: ??? You have a fever or chills. ??? You suddenly cannot urinate. ??? You feel light-headed or very dizzy, or you faint. ??? There are large amounts of blood or clots in your urine. ??? Your urinary problems become hard to manage. ??? You develop moderate to severe low back or flank pain. The flank is the side of your body between the ribs and the hip. These symptoms may be an emergency. Get help right away. Call 911. ??? Do not wait to see if the symptoms will go away. ??? Do not drive yourself to the hospital. Summary ??? Benign prostatic hyperplasia (BPH) is an enlarged prostate that is caused by the normal aging process. It is not caused by cancer. ??? An enlarged prostate can press on the urethra. This can make it hard to pass urine. ??? This condition is more likely to develop in men older than 50 years. ??? Get help right away if you suddenly cannot urinate. This information is not intended to replace advice given to you by your health care provider. Make sure you discuss any questions you have with your health care provider. Document Revised: 03/07/2022 Document Reviewed: 03/07/2022 [employer] Patient Education ??? 2023 [employer]. UROLOGY OFFICE/CLINIC NOTE Observed: 03/2025 8:41 AM Status: F Source: [facility] Urology Office/Clinic Note Chief Complaint 3 mo fu HPI Staff 64 yr old male here for 3 mth f/u w/PSA Previous DX: asymptomatic microscopic hematuria, BPH w/urinary obstruction, ED, HX of kidney stones *Tadalafil 20mg PRN therapy PSA 12/07/22 - 0.77 01/17/24 - 1.20 08/14/24 - 1.6 & 12.5% 10/30/24 - 1.3 & 22.3% patient denies any gross hematuria or dysuria. History of Present Illness I have reviewed and verified the staff HPI to be accurate for this encounter. Portions of this record may have been created with voice recognition artificial intelligence software, specifically [employer], hetras and or [employer]. Substitutions may have occurred due to the inherent limitations of voice recognition and artificial intelligence software. Review of Systems PHQ Score Initial Depression Screen Score: 0 SCORE Physical Exam Vitals & Measurements HR: 68(Peripheral) RR: 16 BP: 150/93 HT: 72 in HT: 183 cm WT: 72 kg WT: 158.733 lb BMI: 21.5 General: Well developed, well nourished, in no acute distress. Assessment/Plan [facility] pt 1. Elevated PSA (R97.20: Elevated prostate specific antigen [PSA]) PSA: 07/2020 - 0.59 02/23/22 - 0.60 12/07/22 - 0.77 01/17/24 - 1.20 *had intercourse the day prior 08/14/24 - 1.6 & 12.5% ./ - 1.3 & 22.3% MAGDY 08/10/24 ~ 30 g, no nodules Denies family history of prostate cancer At prior OV, PSA was elevated, but pt had noted he had intercourse the day prior. Recheck PSA remained high and was advised to follow more closely. Discussed most recent PSA remains elevated from 2022 levels, but has not further significantly increased. We discussed further management options including MRI of prostate versus continued close monitoring. Patient opts for continued close monitoring. -Follow-up 6 months with PSA. Patient prefers a Saturday in [place] office. Ordered: PSA Free & Total 2. BPH without urinary obstruction (N40.0: Benign prostatic hyperplasia without lower urinary tract symptoms) IPSS 3, QOL 1 UA today without signs of infection. Patient is not currently taking any prostate or bladder medications. Denies any bothersome symptoms at this time. -Continue to monitor Ordered: Urnls Dip Stick Auto w/o Microscopy POC [id number] 3. ED (erectile dysfunction) (N52.9: Male erectile dysfunction, unspecified) DORA 17 Currently taking tadalafil 20 mg as needed. Tolerating well without side effects. Does not wish to make any changes at this time. -Continue tadalafil, call for refills 4. Personal history of kidney stones (Z87.442: [...] 07/18/23 - Neg. KUB 08/07/24 - Neg. -KUB due August 2025 5. Asymptomatic microscopic hematuria (R31.21: Asymptomatic microscopic hematuria) UA today shows moderate blood, no signs of infection. Patient denies any episode of gross hematuria. He reports that he has had a long time history of microscopic hematuria. States that he had cystoscopy and kidney imaging in the past which was negative. -Patient to call office with any episode of gross hematuria Follow-up No qualifying data available Patient Education Prostate Cancer Screening Hematuria, Adult Erectile Dysfunction Benign Prostatic Hyperplasia Problem List/Past Medical History Ongoing Asymptomatic microscopic [...] 07/08/2020 Never., 08/07/2024 Substance Abuse Never., 08/07/2024 Tobacco quit 1 year ago Tobacco Use:., 08/10/2024 Family History Cancer: Mother. Immunizations Vaccine Date Status Comments influenza virus vaccine, inactivated - Not Given Patient Refuses Lab Results Ambulatory Point of Care Results Bilirubin Urine Dipstick: Negative (11/06/24 08:10:00) Blood Urine Dipstick: 2+ Moderate (11/06/24 08:10:00) Glucose Urine Dipstick: Negative (11/06/24 08:10:00) Ketones Urine Dipstick: Negative (11/06/24 08:10:00) Leukocytes Urine Dipstick: Negative (11/06/24 08:10:00) Nitrite Urine Dipstick: Negative (11/06/24 08:10:00) Protein Urine Dipstick: Negative (11/06/24 08:10:00) Specific [place]az Urine Dipstick: 1.020 (11/06/24 08:10:00) Urine Appearance Urine Dipstick: Clear (11/06/24 08:10:00) Urine Color Urine Dipstick: Yellow (11/06/24 08:10:00) Urobilinogen Urine Dipstick: Normal 0.2-1 EU/dl (11/06/24 08:10:00) pH Urine Dipstick: 5.5 (11/06/24 08:10:00) Result Comment: Electronical ly Signed By: RICHARD Vargas APRN, [place] X\.br\Date and Time Signed: 11/06/24 08:41 EST PATIENT EDUCATION Observed: 11/06/2024 8:41 AM Status: C Source: [facility] Patient Education Oncology Prostate Cancer Screening Prostate [...] Where to find more information ??? [employer] [place] [employer]: www.cancer.org ??? [place] [employer]: www.auanet.org Contact a health care [...] gland adds fluid to semen during ejaculation. ??? Prostate cancer screening may identify cancer at an early stage, when the cancer can be treated more easily and is less likely to have spread to other areas of the body. ??? The prostate-specific antigen (PSA) test is the recommended screening test for prostate cancer, but it has associated risks. ??? Discuss the risks and benefits of prostate [...] provider. Document Revised: 02/12/2022 Document Reviewed: 02/12/2022 [employer] Patient Education ? 2023 [employer]Urology Hematuria, Adult Hematuria is blood in the urine. Blood may be visible in the urine, or it may be identified with a test. This condition can be caused by infections of the bladder, urethra, kidney, or prostate. Other possible causes include: ??? Kidney stones. ??? Cancer of the urinary tract. ??? Too much calcium in the urine. ??? Conditions that are passed from parent to child (inherited conditions). ??? Exercise that requires a lot of energy. Infections can usually be treated with medicine, and a kidney stone usually will pass through your urine. If neither of these is the cause of your hematuria, more tests may be needed to identify the cause of your symptoms. It is very important to tell your health care provider about any blood in your urine, even if it is painless or the blood stops without treatment. Blood in the urine, when it happens and then stops and then happens again, can be a symptom of a very serious condition, including cancer. There is no pain in the initial stages of many urinary cancers. Follow these instructions at home: Medicines ??? Take grll-uyn-immdrrc and prescription medicines only as told by your health care provider. ??? If you were prescribed an antibiotic medicine, take it as told by your health care provider. Do not stop taking the antibiotic even if you start to feel better. Eating and drinking ??? Drink enough fluid to keep your urine pale yellow. It is recommended that you drink 3?4 quarts (2.8?3.8 L) a day. If you have been diagnosed with an infection, drinking cranberry juice in addition to large amounts of water is recommended. ??? Avoid caffeine, tea, and carbonated beverages. These tend to irritate the bladder. ??? Avoid alcohol because it may irritate the prostate (in males). General instructions ??? If you have been diagnosed with a kidney stone, follow your health care provider's instructions about straining your urine to catch the stone. ??? Empty your bladder often. Avoid holding urine for long periods of time. ??? If you are female: ? After a bowel movement, wipe from front to back and use each piece of toilet paper only once. ? Empty your bladder before and after sex. ??? Pay attention to any changes in your symptoms. Tell your health care provider about any changes or any new symptoms. ??? It is up to you to get the results of any tests. Ask your health care provider, or the department that is doing the test, when your results will be ready. ??? Keep all follow-up visits. This is important. Contact a health care provider if: ??? You develop back pain. ??? You have a fever or chills. ??? You have nausea or vomiting. ??? Your symptoms do not improve after 3 days. ??? Your symptoms get worse. Get help right away if: ??? You develop severe vomiting and are unable to take medicine without vomiting. ??? You develop severe pain in your back or abdomen even though you are taking medicine. ??? You pass a large amount of blood in your urine. ??? You pass blood clots in your urine. ??? You feel very weak or like you might faint. ??? You faint. Summary ??? Hematuria is blood in the urine. It has many possible causes. ??? It is very important that you tell your health care provider about any blood in your urine, even if it is painless or the blood stops without treatment. ??? Take jzup-qgj-onqkmwc and prescription medicines only as told by your health care provider. ??? Drink enough fluid to keep your urine pale yellow. This information is not intended to replace advice given to you by your health care provider. Make sure you discuss any questions you have with your health care provider. Document Revised: 04/19/2021 Document Reviewed: 04/19/2021 [employer] Patient Education ? 2023 [employer] Inc[employer]Erectile Dysfunction Erectile dysfunction (ED) is the inability to get or keep an erection in order to have sexual intercourse. ED is considered a symptom of an underlying disorder and is not considered a disease. ED may include: ??? Inability to get an erection. ??? Lack of enough hardness of the erection to allow penetration. ??? Loss of erection before sex is finished. What are the causes? This condition may be caused by: ??? Physical causes, such as: ? Artery problems. This may include heart disease, high blood pressure, atherosclerosis, and diabetes. ? Hormonal problems, such as low testosterone. ? Obesity. ? Nerve problems. This may include back or pelvic injuries, multiple sclerosis, Parkinson's disease, spinal cord injury, and stroke. ??? Certain medicines, such as: ? Pain relievers. ? Antidepressants. ? Blood pressure medicines and water pills (diuretics). ? Cancer medicines. ? Antihistamines. ? Muscle relaxants. ??? Lifestyle factors, such as: ? Use of drugs such as marijuana, cocaine, or opioids. ? Excessive use of alcohol. ? Smoking. ? Lack of physical activity or exercise. ??? Psychological causes, such as: ? Anxiety or stress. ? Sadness or depression. ? Exhaustion. ? Fear about sexual performance. ? Guilt. What are the signs or symptoms? Symptoms of this condition include: ??? Inability to get an erection. ??? Lack of enough hardness of the erection to allow penetration. ??? Loss of the erection before sex is finished. ??? Sometimes having normal erections, but with frequent unsatisfactory episodes. ??? Low sexual satisfaction in either partner due to erection problems. ??? A curved penis occurring with erection. The curve may cause pain, or the penis may be too curved to allow for intercourse. ??? Never having nighttime or morning erections. How is this diagnosed? This condition is often diagnosed by: ??? Performing a physical exam to find other diseases or specific problems with the penis. ??? Asking you detailed questions about the problem. ??? Doing tests, such as: ? Blood tests to check for diabetes mellitus or high cholesterol, or to measure hormone levels. ? Other tests to check for underlying health conditions. ? An ultrasound exam to check for scarring. ? A test to check blood flow to the penis. ??? Doing a sleep study at home to measure nighttime erections. How is this treated? This condition may be treated by: ??? Medicines, such as: ? Medicine taken by mouth to help you achieve an erection (oral medicine). ? Hormone replacement therapy to replace low testosterone levels. ? Medicine that is injected into the penis. Your health care provider may instruct you how to give yourself these injections at home. ? Medicine that is delivered with a short applicator tube. The tube is inserted into the opening at the tip of the penis, which is the opening of the urethra. A tiny pellet of medicine is put in the urethra. The pellet dissolves and enhances erectile function. This is also called MUSE (medicated urethral system for erections) therapy. ??? Vacuum pump. This is a pump with a ring on it. The pump and ring are placed on the penis and used to create pressure that helps the penis become erect. ??? Penile implant surgery. In this procedure, you may receive: ? An inflatable implant. This consists of cylinders, a pump, and a reservoir. The cylinders can be inflated with a fluid that helps to create an erection, and they can be deflated after intercourse. ? A semi-rigid implant. This consists of two silicone rubber rods. The rods provide some rigidity. They are also flexible, so the penis can both curve downward in its normal position and become straight for sexual intercourse. ??? Blood vessel surgery to improve blood flow to the penis. During this procedure, a blood vessel from a different part of the body is placed into the penis to allow blood to flow around (bypass) damaged or blocked blood vessels. ??? Lifestyle changes, such as exercising more, losing weight, and quitting smoking. Follow these instructions at home: Medicines ??? Take prdw-zcm-urqbmed and prescription medicines only as told by your health care provider. Do not increase the dosage without first discussing it with your health care provider. ??? If you are using self-injections, do injections as directed by your health care provider. Make sure you avoid any veins that are on the surface of the penis. After giving an injection, apply pressure to the injection site for 5 minutes. ??? Talk to your health care provider about how to prevent headaches while taking ED medicines. These medicines may cause a sudden headache due to the increase in blood flow in your body. General instructions ??? Exercise regularly, as directed by your health care provider. Work with your health care provider to lose weight, if needed. ??? Do not use any products that contain nicotine or tobacco. These products include cigarettes, chewing tobacco, and vaping devices, such as e-cigarettes. If you need help quitting, ask your health care provider. ??? Before using a vacuum pump, read the instructions that come with the pump and discuss any questions with your health care provider. ??? Keep all follow-up visits. This is important. Contact a health care provider if: ??? You feel nauseous. ??? You are vomiting. ??? You get sudden headaches while taking ED medicines. ??? You have any concerns about your sexual health. Get help right away if: ??? You are taking oral or injectable medicines and you have an erection that lasts longer than 4 hours. If your health care provider is unavailable, go to the nearest emergency room for evaluation. An erection that lasts much longer than 4 hours can result in permanent damage to your penis. ??? You have severe pain in your groin or abdomen. ??? You develop redness or severe swelling of your penis. ??? You have redness spreading at your groin or lower abdomen. ??? You are unable to urinate. ??? You experience chest pain or a rapid heartbeat (palpitations) after taking oral medicines. These symptoms may represent a serious problem that is an emergency. Do not wait to see if the symptoms will go away. Get medical help right away. Call your local emergency services (911 in the [place] Do not drive yourself to the hospital. Summary ??? Erectile dysfunction (ED) is the inability to get or keep an erection during sexual intercourse. ??? This condition is diagnosed based on a physical exam, your symptoms, and tests to determine the cause. Treatment varies depending on the cause and may include medicines, hormone therapy, surgery, or a vacuum pump. ??? You may need follow-up visits to make sure that you are using your medicines or devices correctly. ??? Get help right away if you are taking or injecting medicines and you have an erection that lasts longer than 4 hours. This information is not intended to replace advice given to you by your health care provider. Make sure you discuss any questions you have with your health care provider. Document Revised: 11/15/2021 Document Reviewed: 11/15/2021 [employer] Patient Education ? 2023 [employer].Benign Prostatic Hyperplasia Benign prostatic hyperplasia (BPH) is [...] or symptoms? Symptoms of this condition include: ??? Getting up often during the night to urinate. ??? Needing to urinate frequently during the day. ??? Difficulty starting urine flow. ??? Decrease in size and strength of your urine stream. ??? Leaking (dribbling) after urinating. ??? Inability to pass urine. This needs immediate treatment. ??? Inability to completely empty your bladder. ??? Pain when you pass urine. This is more common if there is also an infection. ??? Urinary tract infection (UTI). How is this diagnosed? This condition is diagnosed based on your medical history, a physical exam, and your symptoms. Tests will also be done, such as: ??? A post-void bladder scan. This measures any amount of urine that may remain in your bladder after you finish urinating. ??? A digital rectal exam. In a rectal exam, your health care provider checks your prostate by putting a lubricated, gloved finger into your rectum to feel the back of your prostate gland. This exam detects the size of your gland and any abnormal lumps or growths. ??? An exam of your urine (urinalysis). ??? A prostate specific antigen (PSA) screening. This is a blood test used to screen for prostate cancer. ??? An ultrasound. This test uses sound waves [...] severity of your condition. Treatment may include: ??? Observation and yearly exams. This may be the only treatment needed if your condition and symptoms are mild. ??? Medicines to relieve your symptoms, including: ? Medicines to shrink the prostate. ? Medicines to relax the muscle of the prostate. ??? Surgery in severe cases. Surgery may include: ? Prostatectomy. In this procedure, the prostate tissue is removed completely through an open incision or with a laparoscope or robotics. ? Transurethral resection of the prostate (TURP). In this procedure, a tool is inserted through the opening at the tip of the penis (urethra). It is used to cut away tissue of the inner core of the prostate. The pieces are removed through the same opening of the penis. This removes the blockage. ? Transurethral incision (TUIP). In this procedure, small cuts are made in the prostate. This lessens the prostate's pressure on the urethra. ? Transurethral microwave thermotherapy (TUMT). This procedure uses microwaves to create heat. The heat destroys and removes a small amount of prostate tissue. ? Transurethral needle ablation (TUNA). This procedure uses radio frequencies to destroy and remove a small amount of prostate tissue. ? Interstitial laser coagulation (ILC). This procedure uses a laser to destroy and remove a small amount of prostate tissue. ? Transurethral electrovaporization (TUVP). This procedure uses electrodes to destroy and remove a small amount of prostate tissue. ? Prostatic urethral lift. This procedure inserts an implant to push the lobes of the prostate away from the urethra. Follow these instructions at home: ??? Take jopz-nfj-yrbyawd and prescription medicines only as told by your health care provider. ??? Monitor your symptoms for any changes. Contact your health care provider with any changes. ??? Avoid drinking large amounts of liquid before going to bed or out in public. ??? Avoid or reduce how much caffeine or alcohol you drink. ??? Give yourself time when you urinate. ??? Keep all follow-up visits. This is important. Contact a health care provider if: ??? You have unexplained back pain. ??? Your symptoms do not get better with treatment. ??? You develop side effects from the medicine you are taking. ??? Your urine becomes very dark or has a bad smell. ??? Your lower abdomen becomes distended and you have trouble passing urine. Get help right away if: ??? You have a fever or chills. ??? You suddenly cannot urinate. ??? You feel light-headed or very dizzy, or you faint. ??? There are large amounts of blood or clots in your urine. ??? Your urinary problems become hard to manage. ??? You develop moderate to severe low back or flank pain. The flank is the side of your body between the ribs and the hip. These symptoms may be an emergency. Get help right away. Call 911. ??? Do not wait to see if the symptoms will go away. ??? Do not drive yourself to the hospital. Summary ??? Benign prostatic hyperplasia (BPH) is an enlarged prostate that is caused by the normal aging process. It is not caused by cancer. ??? An enlarged prostate can press on the urethra. This can make it hard to pass urine. ??? This condition is more likely to develop in men older than 50 years. ??? Get help right away if you suddenly cannot urinate. This information is not intended to replace advice given to you by your health care provider. Make sure you discuss any questions you have with your health care provider. Document Revised: 03/07/2022 Document Reviewed: 03/07/2022 [employer] Patient Education ? 2023 [employer] UROLOGY OFFICE/CLINIC NOTE Observed: 05/2024 8:54 AM Status: F Source: [facility] Urology Office/Clinic Note Chief Complaint 1 year [...] [place], URL [address] [place] [id number] Additional Instructions: 1 yr with PSA pending [...] with voice recognition artificial intelligence software, specifically Kaymbu, hetras and or Big[employer]. Substitutions may have occurred due to the [...] 07/08/2020 Never., 08/07/2024 Substance Abuse Never., 08/07/2024 Tobacco quit 1 year ago Tobacco Use:., 08/10/2024 Family History Cancer: Mother. Immunizations Vaccine Date Status Comments influenza virus vaccine, inactivated - Not Given Patient Refuses Lab Results Ambulatory Point of Care Results Bilirubin Urine Dipstick: Negative (08/10/24 08:36:00) Blood Urine Dipstick: 2+ Moderate (08/10/24 08:36:00) Glucose Urine Dipstick: Negative (08/10/24 08:36:00) Ketones Urine Dipstick: Negative (08/10/24 08:36:00) Leukocytes Urine Dipstick: Negative (08/10/24 08:36:00) Nitrite Urine Dipstick: Negative (08/10/24 08:36:00) Protein Urine Dipstick: Negative (08/10/24 08:36:00) Specific Boaz Urine Dipstick: 1.020 (08/10/24 08:36:00) Urine Appearance Urine Dipstick: Clear (08/10/24 08:36:00) Urine Color Urine Dipstick: Yellow (08/10/24 08:36:00) Urobilinogen Urine Dipstick: Normal 0.2-1 EU/dl (08/10/24 08:36:00) pH Urine Dipstick: 5.5 (08/10/24 08:36:00) Result Comment: Electronical ly Signed By: All ESCUDERO MD P\.br\Date and Time Signed: 08/10/24 09:02 EST\.br\Electronically Co-Signed By: Bhavani Acevedo\.br\Date and Time Co-Signed: 08/10/24 08:56 EST PATIENT EDUCATION Observed: 08/10/2024 8:54 AM Status: F Source: [facility] Patient Education Oncology Prostate Cancer Screening Prostate [...] Where to find more information ??? The [place] [employer]: www.cancer.org ??? [place] [employer]: www.auanet.org Contact a health care [...] gland adds fluid to semen during ejaculation. ??? Prostate cancer screening may identify cancer at an early stage, when the cancer can be treated more easily and is less likely to have spread to other areas of the body. ??? The prostate-specific antigen (PSA) test is the recommended screening test for prostate cancer, but it has associated risks. ??? Discuss the risks and benefits of prostate [...] provider. Document Revised: 02/12/2022 Document Reviewed: 02/12/2022 [employer] Patient Education ? 2023 [employer] Inc[employer] ALLERGIES DATE TYPE / CODE NAME / CODE REACTION SEVERITY SOURCE Drug Class/811872594(SNO MED CT) NO KNOWN ALLERGIES [facility]/[id number](SNOMED CT) No Known Allergies [facility] ENCOUNTERS ADMIT/DISCHARGE ACCOUNT NUMBER ADMITTING ENCOUNTER CLASS LOCATION SOURCE 01/13/2025/ 5 [id number] Ambulatory [facility] 11/06/2024/ 5 [id number] [place] 4 [facility] 08/10/2024/ 4 [id number] [place]am 6 [facility] FUNCTIONAL STATUS No Functional Status Records Found EQUIPMENT No Equipment Records Found PAYERS ENCOUNTER GUARANTOR PAYER SUBSCRIBER SOURCE 01/13/2025 GABRIEL [address]: [address], [place] [address]Won: (HP) Primary Insurance:CIGNAPo licy Number: [id number] Date:2023-09-02 GABRIEL Adams TINKLEDOB: [id number], [place] [address]Vcf: (HP) (WP) [facility] 11/06/2024 GABRIEL Adams TINKLEDOB: [address]Tel: ~~([phone] (HP) Primary Insurance:CIGNAPo licy Number: [id number] haylee Date:[id number] [address]PE: GABRIEL ALVARADO [facility] 08/10/2024 GABRIEL Adams TINKLEDOB: [id number]Tel: ~~(56 (HP) Primary Insurance:CIGNAPo licy Number: [id number] haylee Date:[id number] [address]XL: GABRIEL ALVARADO [facility] SOCIAL HISTORY No Social History Records Found FAMILY HISTORY No Family History Records Found No Status Records Found ADVANCE DIRECTIVES No Advanced Directives Records Found INFORMATION SOURCE DATE CREATED AUTHOR AUTHOR'S ANDREA ATION 01/22/2025 [facility]
[2025-01-22 09:11] LABS: Basophils Absolute Auto 0.1 10^3/uL (0.0-0.1); Eosinophils Absolute Auto 0.4 10^3/uL (0.0-0.7); Eosinophils Percent Auto 4.5 % (0.9-7.0); Hematocrit 44.9 % (42.0-54.0); Hemoglobin 15.3 g/dL (14.0-18.0); Immature Granulocytes Abs Auto 0.03 10^3/uL (0.00-0.03); Immature Granulocytes Pct Auto 0.4 % (0.0-0.5); Lymphocytes Absolute Auto 2.2 10^3/uL (1.2-3.8); Lymphocytes Percent Auto 28.1 % (20.5-60.0); Mean Corpuscular HGB Conc 34.1 g/dL (29.9-35.2); Mean Corpuscular Hemoglobin 29.7 pg (25.9-34.0); Mean Platelet Volume 10.1 fL (9.5-13.5); Monocytes Absolute Auto 1.1 10^3/uL (0.3-0.8); Monocytes Percent Auto 13.6 % (1.7-12.0); Neutrophils Absolute Auto 4.1 10^3/uL (1.4-6.5); Neutrophils Percent Auto 52.4 % (43.0-75.0); Platelet Count 206 10^3/uL (150-450); Red Blood Count 5.16 10^6/uL (4.70-6.10); Red Cell Distribution Width 12.5 % (11.0-15.0); White Blood Count 7.8 10^3/uL (4.0-11.0)
[2025-01-22 09:21] LABS: Estimated Average Glucose 126 mg/dL
[2025-01-22 09:35] LABS: Alanine Aminotransferase 30 U/L (16-63); Albumin Level 3.1 g/dL (3.4-5.0); Alkaline Phosphatase 46 U/L (46-116); Anion Gap 13.1; Aspartate Amino Transferase 14 U/L (15-37); BUN Creatinine Ratio 11.8; Bilirubin Total 0.3 mg/dL (0.2-1.0); Calcium 8.8 mg/dL (8.5-10.1); Carbon Dioxide 28.1 mmol/L (21.0-32.0); Chloride 106 mmol/L (98-107); Chol HDL Ratio 4.1; Cholesterol 204 mg/dL (<=200); Estimated GFR (African America >60 (>=60 mL/min/1.73m^2); Estimated GFR (Non-African Ame >60 (>=60 mL/min/1.73m^2); Globulin 3.2 g/dL; Glucose 101 mg/dL (74-106); HDL Cholesterol 50 mg/dL (40-60); Potassium 4.2 mmol/L (3.5-5.1); Sodium 143 mmol/L (136-145); Total Protein 6.3 g/dL (6.4-8.2); Triglycerides 135 mg/dL (<=150)
[2025-01-22 10:03] LABS: Prostate Specific Antigen Scrn 1.34 ng/mL (<=4.00)
== END 2025-01-22 08:41 | disposition home or self-care (01) ==
LOC: LAB 08:44
PROVIDERS: PCP Nurse Practitioner; Visit Provider Nurse Practitioner
DX: Z00.00 Encounter for general adult medical examination without abnormal findings (principal); Z12.5 Encounter for screening for malignant neoplasm of prostate
CPT/HCPCS: 36415; 80053; 80061; 83036; 85025; G0103

== ENCOUNTER 2025-05-12 08:04 | Outpatient (OUT) | payer OTHER, SELFPAY ==
--- OUTSIDE RECORDS SUMMARY | 2025-05-12 08:09 | XMS_ITS | CCD ---
Author Organization [facility] Care Team Providers Care Lacquer Sizer Name Role Phone HAYLEY, DR ALL Gaines Admitting Unavailable HAYLEY, DR ALL Gaines Consulting Unavailable HAYLEY, DR ALL Gaines Attending Unavailable JAMUL, DR ELLIOTT Primary Care Unavailable DAYAN, DR ERNESTO Daugherty Consulting Unavailable VLADIMIR JORDAN Primary Care Physician Julian BREAKFAST HOSTESS-BITUMINOUS PAVING MACHINE OPERATORVladimir Primary Care Provid er Julian BREAKFAST HOSTESS-BITUMINOUS PAVING MACHINE OPERATOR, Vladimir Alves Primary Care Provid er VLADIMIR JORDAN Attending Unavailable VLADIMIR JORDAN Referring Unavailable VLADIMIR JORDAN Primary Care Unavailable MAVIS LORENZ Attending Unavailable VLADIMIR JORDAN Primary Care Unavailable Deborah Vargas Attending Unavailable VLADIMIR JORDAN Primary Care Unavailable Deborha Vargas Attending Unavailable VLADIMIR JORDAN Primary Care Unavailable VLADIMIR JORDAN Primary Care Unavailable All HARDY Attending Unavailable All HARDY Attending Unavailable VLADIMIR JORDAN Primary Care Unavailable Medications Current Medications Medication Drug Class(es) Dates Sig (Normalized) Sig (Original) tadalafil 20 mg oral tablet (6 sources) Phosphodiesterase 5 Inhibitor Start: 07-26-2023 tadalafiL (CIALIS) 20 mg tablet 11/27/2023 Active Start: 03-02-2022 End: 01-08-2024 tadalafiL (CIALIS) 10 MG tab let Take 1 tablet (10 mg total) by mouth. 03/02/2022 01/08/2024 Discontinued (Dose adjustment) Problems Active Problems Problem Classification Problem Date Documented Da te Episodic/Chronic Genitourinary symptoms and ill-defined conditions (2 sources) Microscopic hematuria; Translations: [Asymptomatic microscopic hematuria] Onset: 07-23-2023 Episodic Hyperplasia of prostate (11 sources) Benign prostatic hyperplasia without lower urinary tract symptoms; Translations: [Benign prostatic hypertrophy without outflow obstruction] Onset: 02-28-2022 Chronic Immunizations and screening for infectious disease (2 sources) Viral screening status; Translations: [Encounter for screening for other viral diseases] Onset: 01-13-2025 01-13-2025 Episodic Other male genital disorders (7 sources) Male erectile dysfunction, unspecified; Translations: [Erectile dysfunction] Onset: 06-21-2022 Chronic Other screening for suspected conditions (not mental disorders or infectious disease) (6 sources) Encounter for screening for malignant neoplasm of prostate; Translations: [Screening for malignant neoplasm done] Onset: 07-23-2023 Episodic Unclassified (2 sources) Asymptomatic microscopic hematuria 07-08-2020 Unclassified (2 sources) Patient encounter status 07-23-2023 Unclassified (1 source) well person Onset: 01-13-2025 Past or Other Problems Problem Classification Problem Date Documented Da te Episodic/Chronic Calculus of urinary tract (13 sources) Calculus of kidney; Translations: [History of calculus of kidney] Onset: 02-23-2022 Episodic Mood disorders (3 sources) Mood disorders Onset: 01-08-2024 Resolved: 01-13-2025 01-08-2024 Other and unspecified benign neoplasm (3 sources) Polyp of sigmoid colon; Translations: [Polyp of colon] Onset: 02-01-2023 02-01-2023 Episodic Other diseases of kidney and ureters (3 sources) Cyst of kidney; Translations: [Cyst of kidney, acquired] Onset: 06-21-2022 06-21-2022 Episodic Other gastrointestinal disorders (3 sources) Stool DNA-based colorectal cancer screening positive; Translations: [Other fecal abnormalities] Onset: 01-24-2023 01-24-2023 Episodic Unclassified (3 sources) Onset: 01-02-2023 Resolved: 01-13-2025 01-02-2023 Results Test Name Value Interpretation Reference Range Facil ity Provider Letteron 04-15-2025 Provider Letter Provider Letter April 15, 2025 GABRIEL HARMAN [address] [place] [address] : 1960 Dear Gabriel, We have been trying to reach you with no success. You have an appointment with Mavis Lorenz PA-C on May 21, 2025 which will need to be rescheduled since she has left our practice. Please contact the office at the number listed below to get this appointment rescheduled at your earliest convenience. Thank you for your prompt attention to this matter. Sincerely, [facility] [address] [place] [address] [place] [address] [facility] Ambulatory Visit Summaryon 0 11-06-2024 Ambulatory Visit Summary Ambulatory Visit Summary GABRIEL HARMAN :1960 Visit Date:11/06/2024 Ambulatory Visit Instructions Your Diagnosis Elevated PSA BPH without urinary obstruction ED (erectile dysfunction) Personal history of kidney stones Asymptomatic microscopic hematuria Your Care Team Attending Physician - RICHARD Vargas APRN, Deborah Madrigal Primary Care Physician - VLADIMIR JORDAN CNP This Is Your Medications List Contact prescribing physician if questions or concerns tadalafil (tadalafil 20 mg Tab) Procedures Performed Tonsillectomy. Discharge Vitals Heart Rate (Peripheral) 68 Respiratory Rate 16 Blood Pressure 150/93 Height 183 cm Height 72 in Weight 72 kg Weight 158.733 lb BMI 21.5 What to do next Scheduled Follow-Up Appointments Saturday 9:40 AM EDT With: MAVIS LORENZ PA-C Where: [facility] [address] [place] [address] [place] [address]- Saturday 8:15 AM EST With: All HARDY MD Where: [facility] [address] [place] [address]. [place] [address]- Medications What How Much When Instructions Unchanged [...] check the size of your prostate gland, i (more content not included)... Normal [facility] Urology Office/Clinic Noteon 11-06-2024 Urology Office/Clinic Note Urology Office/Clinic Note Chief Complaint 3 mo [...] with voice recognition artificial intelligence software, specifically [employer], [employer] and or [employer]. Substitutions may have occurred due to the [...] day prior 08/14/24 - 1.6 & 12.5% . - 1.3 & 22.3% MAGDY 08/10/24 ~ [...] with PSA. Patient prefers a Saturday in [place] office. Ordered: PSA Free & Total 2. BPH without urinary obstruction (N40.0: Benign prostatic hyperplasia without lower urinary tract symptoms) IPSS 3, QOL 1 UA today without signs of infection. Patient is not currently taking any prostate or bladder medications. Denies any bothersome symptoms at this time. -Continue to monitor Ordered: Urnls Dip Stick Auto w/o Microscopy POC 32421 3. ED (erectile dysfunction) (N52.9: Male erectile [...] Protein Urine Dipstick: Negative (11/06/24 08:10:00) Specific [place] Urine Dipstick: 1.020 (11/06/24 08:10:00) Urine Appearance Urine Dipstick: Clear (11/06/24 08:10:00) Urine Color Urine Dipstick: Yellow (11/06/24 08:10:00) Urobilinogen Urine Dipstick: Normal 0.2-1 EU/dl (11/06/24 08:10:00) pH Urine Dipstick: 5.5 (11/06/24 08:10 (more content not included)... Normal [facility] Comment on above: Result Comment: Elec tronically Signed By: RICHARD Vargas APRN, [place] X\.br\Date and Time Signed: 11/06/24 08:41 EST Urology Office/Clinic Noteon 08-10-2024 Urology Office/Clinic Note [...] Information HAYLEY ROSE, All Gaines, URL [address] [address]- Additional Instructions: 1 yr with PSA pending PSA level soon Patient Education Prostate Cancer Screening Bhavani Small, personally scribed for Dr. Hardy on 08/10/2024 08:54:40. . Documentation recorded by the scribe, Bhavani Acevedo, accurately reflects the services(s) I performed and decisions made by me. Authenticated by Dr. Hardy on 08/10/2024 09:01:16. Portions of this record may have been created with voice recognition artificial intelligence software, specifically [employer], [employer] and or [employer]. Substitutions may have occurred due to the [...] 08/07/2024 To (more content not included)... Normal [facility] Comment on above: Result Comment: Elec tronically Signed By: All HARDY MD P\.br\Date and Time Signed: [...] by: ERNESTO HANLEY Date: 2022-02-23 15:34 Normal [facility] Vital Signs Date Time Vital Sign Value Performing Clinician Facility 01-13-2025 15:56-0400 Body height 182.9 cm Vladimir Jordan APRN-BITUMINOUS PAVING MACHINE OPERATOR Work Phone: [employer] 01-13-2025 15:56-0400 Body mass index (BMI) [Ratio] 22.21 kg/m2 Vladimir Jordan APRN-LUIGI Work Phone: [facility] [employer] [facility] 01-13-2025 15:56-0400 Body temperature 97.81 [degF] Vladimir Jordan APRN-LUIGI Work Phone: [facility] [employer] [facility] 01-13-2025 15:56-0400 Body weight 74.3 kg Vladimir Jordan APRN-LUIGI Work Phone: [facility] [employer] [facility] 01-13-2025 15:56-0400 Diastolic blood pressure 80 mm[Hg] Vladimir Jordan APRN-LUIGI Work Phone: [facility] [employer] [facility] 01-13-2025 15:56-0400 Heart rate 68 /min Vladimir Jordan APRN-LUIGI Work Phone: [facility] [employer] [facility] 01-13-2025 15:56-0400 Respiratory rate 18 /min Vladimir Jordan APRN-LUIGI Work Phone: [facility] 01-13-2025 15:56-0400 SaO2% (BldA) [Mass fraction] 94 % Vladimir Jordan APRN-LUIGI Work Phone: [facility] [employer] [facility] 01-13-2025 15:56-0400 Systolic blood pressure 128 mm[Hg] Vladimir Jordan APRN-LUIGI Work Phone: [facility] 08-10-2024 08:28-0500 Blood Pressure Location All HAYLEY [facility] 08-10-2024 08:28-0500 Diastolic blood pressure 75 mm[Hg] All HARDY [facility] 08-10-2024 08:28-0500 Heart rate 64 /min All HARDY [facility] 08-10-2024 08:28-0500 Respiratory rate 19 /min All HARDY [facility] 08-10-2024 08:28-0500 Systolic blood pressure 133 mm[Hg] All HARDY [facility] 01-08-2024 16:15-0400 Body height 182.9 cm Vladimir Jordan BREAKFAST HOSTESS-BITUMINOUS PAVING MACHINE OPERATOR Work Phone: [facility] 01-08-2024 16:15-0400 Body mass index (BMI) [Ratio] 21.28 kg/m2 Vladimir Mariaillo BREAKFAST HOSTESS-BITUMINOUS PAVING MACHINE OPERATOR Work Phone: [facility] 01-08-2024 16:15-0400 Body temperature 98.01 [degF] Vladimir Jordan BREAKFAST HOSTESS-BITUMINOUS PAVING MACHINE OPERATOR Work Phone: [facility] 01-08-2024 16:15-0400 Body weight 71.17 kg Vladimir Jordan BREAKFAST HOSTESS-BITUMINOUS PAVING MACHINE OPERATOR Work Phone: [facility] 01-08-2024 16:15-0400 Diastolic blood pressure 64 mm[Hg] Vladimir Mariaillo BREAKFAST HOSTESS-BITUMINOUS PAVING MACHINE OPERATOR Work Phone: [facility] 01-08-2024 16:15-0400 Heart rate 78 /min Vladimir Jordan BREAKFAST HOSTESS-BITUMINOUS PAVING MACHINE OPERATOR Work Phone: [facility] 01-08-2024 16:15-0400 Respiratory rate 16 /min Vladimir Mariaillo BREAKFAST HOSTESS-BITUMINOUS PAVING MACHINE OPERATOR Work Phone: [facility] 01-08-2024 16:15-0400 SaO2% (BldA) [Mass fraction] 94 % Vladimir Mariaillo BREAKFAST HOSTESS-BITUMINOUS PAVING MACHINE OPERATOR Work Phone: [facility] 01-08-2024 16:15-0400 Systolic blood pressure 138 mm[Hg] Vladimir Jordan BREAKFAST HOSTESS-BITUMINOUS PAVING MACHINE OPERATOR Work Phone: [facility] 11-24-2023 10:09-0500 Blood Pressure Location All HARDY [facility] 07-26-2023 10:09-0500 Diastolic blood pressure 84 mm[Hg] All HARDY [facility] 07-26-2023 10:09-0500 Systolic blood pressure 126 mm[Hg] All HARDY [facility] Encounters Encounter Date Encounter Type Care Provider Facility Start: 08-09-2025 ambulatory VLADIMIR JORDAN Facili ty:[facility] Start: 05-21-2025 ambulatory Deborah X Orzech Facilit y:[facility] Start: 05-21-2025 ambulatory MAVIS Cruzi ty:[facility] Start: 01-13-2025 End: 01-13-2025 Patient encounter procedure Vladimir Jordan [employer] Work Phone: [facility] [employer] Work Phone: Start: 01-13-2025 End: 01-13-2025 Periodic preventive med est patient 40-64yrs Vladimir Jordan APRNHigh [employer] Work Phone: [facility] - [facility] Comment on above: Annual physical exam (Primary Dx); Encounter for screening for malignant neoplasm of prostate; Blood tests for routine general physical examination; Need for hepatitis C screening test Start: 01-13-2025 End: 01-13-2025 Physical examination Vladimir Jordan APRNHigh [employer] Work Phone: [facility] Start: 01-13-2025 End: 01-13-2025 ambulatory [facility] Start: 01-13-2025 Encounter for genera l adult medical examination without abnormal findings [facility] Start: 11-06-2024 End: 11-06-2024 ambulatory Deborah X Orzech Facility:[facility] Start: 08-10-2024 End: 08-10-2024 ambulatory All HARDY Facility:[facility] [place] Start: 08-10-2024 End: 08-10-2024 Patient encounter procedure All HARDY [facility] Start: 01-20-2024 End: 01-20-2024 Telephone encounter Xiomy Manuel [facility] Start: 01-08-2024 End: 01-08-2024 Patient encounter procedure Vladimir J Jordan BREAKFAST HOSTESS-BITUMINOUS PAVING MACHINE OPERATOR Work Phone: [employer] Work Phone: Start: 01-08-2024 End: 01-08-2024 Periodic preventive med est patient 40-64yrs Vladimir Long Julian BREAKFAST HOSTESS-BITUMINOUS PAVING MACHINE OPERATOR Work Phone: [facility] Comment on above: Annual physical exam (Primary Dx); Blood tests for routine general physical examination; Encounter for screening for malignant neoplasm of prostate Start: 01-08-2024 End: 01-08-2024 Physical examination Vladimir Mariaillo BREAKFAST HOSTESS-BITUMINOUS PAVING MACHINE OPERATOR Work Phone: [employer] Start: 07-26-2023 End: 07-26-2023 Patient encounter procedure All HARDY [facility] Start: 02-23-2022 End: 02-24-[address] ALL HARDY Facility:[facility] Procedures Date Procedure Procedure Detail Performing Clinician Start: 01-13-2025 Adult depression scr eening assessment Vladimir Jordan BREAKFAST HOSTESS-BITUMINOUS PAVING MACHINE OPERATOR Work Phone: Start: 01-08-2024 Adult depression scr eening assessment Vladimir Jordan BREAKFAST HOSTESS-BITUMINOUS PAVING MACHINE OPERATOR Work Phone: Start: 02-01-2023 Colonoscopy Vladimir esposito BREAKFAST HOSTESS-BITUMINOUS PAVING MACHINE OPERATOR Work Phone: Start: 02-23-[address] ROSEANNA HARDY Comment on above: Performed By: #### P SAD #### [facility] [address] [address] [address] Clayton Kelly Tonsillectomy All HAYLEY Plan of Treatment Date Care Activity Detail Author Start: 02-01-2026 Screening for malign ant neoplasm of colon Colonoscopy [facility] Start: 01-19-2026 End: 01-19-2026 Patient encounter procedure 01/19/2026 4:40 PM EDT Office Visit [facility] [address] [place] [address] Vladimir Jordan, BREAKFAST HOSTESS-BITUMINOUS PAVING MACHINE OPERATOR [address] [place] [id number] [facility] Start: 01-13-2026 Adult BMI Screening Adult BMI Screen ing [facility] Start: 01-13-2026 Depression Screening Depression Scre ening [facility] Start: 01-13-2026 Tobacco Screening Tobacco Screening [facility] Start: 05-03-2025 Influenza vaccination Influenza Vacc ine [facility] Start: 01-13-2025 End: 01-13-2025 Patient encounter procedure 01/13/2025 4:00 PM EDT Office Visit [facility] [address] [place] [address] Vladimir Jordan, BREAKFAST HOSTESS-BITUMINOUS PAVING MACHINE OPERATOR [address] [place] [address] [facility] Start: 01-07-2025 Adult BMI Screening Adult BMI Screen ing [facility] Start: 01-07-2025 Depression Screening Depression Scre ening [facility] Start: 01-07-2025 Tobacco Screening Tobacco Screening [facility] Start: 05-03-2024 Influenza vaccination Influenza Vacc ine [facility] Start: 2010 Administration of varicella zoster vaccine Zoster (Shingles) Vaccine (1 of 2) [facility] Start: 1979 DTaP,Tdap and Td Vaccines (1 - Tdap) DTaP,Tdap and Td Vaccines (1 - Tdap) [facility] End: 01-07-2025 CBC W Auto Differential panel - Blood CBC auto differential Lab Routine Blood tests for routine general physical examination 1 Occurrences starting 01/08/2024 until 01/07/2025 [employer] Work Phone: Comment on above: 1 Occurrences starti ng 01/08/2024 until 01/07/2025 End: 01-13-2026 CBC W Auto Differential panel - Blood CBC auto differential Lab Routine Blood tests for routine general physical examination 1 Occurrences starting 01/13/2025 until 01/13/2026 [facility] Comment on above: 1 Occurrences starti ng 01/13/2025 until 01/13/2026 End: 01-07-2025 Comprehensive metabolic 2000 panel - Serum or Plasma Comprehensive metabolic panel Lab Routine Blood tests for routine general physical examination 1 Occurrences starting 01/08/2024 until 01/07/2025 [facility] Comment on above: 1 Occurrences starti ng 01/08/2024 until 01/07/2025 End: 01-13-2026 Comprehensive metabolic 2000 panel - Serum or Plasma Comprehensive metabolic panel Lab Routine Blood tests for routine general physical examination 1 Occurrences starting 01/13/2025 until 01/13/2026 [employer] Work Phone: Comment on above: 1 Occurrences starti ng 01/13/2025 until 01/13/2026 End: 01-13-2026 Hemoglobin A1c/Hemoglobin.total in Blood Hemoglobin A1c Lab Routine Blood tests for routine general physical examination 1 Occurrences starting 01/13/2025 until 01/13/2026 [facility] Comment on above: 1 Occurrences starti ng 01/13/2025 until 01/13/2026 End: 01-13-2026 Hepatitis C virus Ab [Presence] in Serum or Plasma by Immunoassay Hepatitis C(HCV) Ab w/ Reflex to PCR Lab Routine Need for hepatitis C screening test 1 Occurrences starting 01/13/2025 until 01/13/2026 [facility] Comment on above: 1 Occurrences starti ng 01/13/2025 until 01/13/2026 End: 01-07-2025 Lipid 1996 panel - Serum or Plasma Lipid profile Lab Routine Blood tests for routine general physical examination 1 Occurrences starting 01/08/2024 until 01/07/2025 [facility] Comment on above: 1 Occurrences starti ng 01/08/2024 until 01/07/2025 End: 01-13-2026 Lipid 1996 panel - Serum or Plasma Lipid profile Lab Routine Blood tests for routine general physical examination 1 Occurrences starting 01/13/2025 until 01/13/2026 [facility] Comment on above: 1 Occurrences starti ng 01/13/2025 until 01/13/2026 End: 01-07-2025 Prostatic specific antigen screen Prostatic specific antigen screen Lab Routine Encounter for screening for malignant neoplasm of prostate 1 Occurrences starting 01/08/2024 until 01/07/2025 [facility] Comment on above: 1 Occurrences starti ng 01/08/2024 until 01/07/2025 End: 01-13-2026 Prostatic specific antigen screen Prostatic specific antigen screen Lab Routine Encounter for screening for malignant neoplasm of prostate 1 Occurrences starting 01/13/2025 until 01/13/2026 [facility] Comment on above: 1 Occurrences starti ng 01/13/2025 until 01/13/2026 Immunizations Immunization Date Immunization Notes Care Provider Mat membreno NEGATED: Highlighted row has not occurred!08-10-2024 influenza virus vaccine, unspecified formulation All HARDY [facility] Payers Date Payer Category Payer Private Health Insurance [id number] 2023 Private Health Insurance [id number] 2022 Private Health Insurance [id number] 1960 Unknown [id number] 1960 Unknown [id number] 1960 Unknown [id number] 2.16.8 [id number] 1960 Unknown [id number] [id number] 1960 Unknown [id number] 2.16.8 [id number] 1960 Unknown [id number] [id number] 1960 Unknown [id number] [id number] 1959 Private Health Insurance [id number] Social History Date Type Detail Facility Tobacco quit 1 year ago Tobacco Use:. Cigarettes, Yes [facility] [employer] Tobacco smoking status No Smokin g Status Entered [facility] Start: 01-08-2024 End: 01-13-2025 Sex Assigned At Male [facility] Start: 01-08-2024 Tobacco smoking stat [facility] Ex-smoker [facility] History of tobacco use Current smoker [facility] History of tobacco use Cigarette Smoker P [facility] Start: 01-08-2024 Tobacco use and exposure Former smokeless tobacco user [facility] History of tobacco use Chews Tobacco [facility] Start: 01-08-2024 End: 01-13-2025 Alcoholic beverage intake Ex-drinker (finding) [facility] Start: 01-08-2024 End: 01-13-2025 History of Social function [facility] Adolescent depressio n screening assessment 0 [facility] Start: 01-31-2023 Alcohol Comment very rare [facility] Start: 1960 Sex assigned at Not on file P [facility] Start: 06-07-2022 Sex Male (finding) [facility] Functional Status Date Assessment Result Facility 08-10-2024 Functional Status N/A [facility] 07-26-2023 Functional Status N/A [facility] Clinical Notes 07-26-2023 to 01-13-2025 Vladimir Jordan, BREAKFAST HOSTESS-BITUMINOUS PAVING MACHINE OPERATOR - 01/13/2025 4:00 PM EDTTelephone Encounter - Xiomy Jackson CMA - 01/20/2024 11:14 AM EDTTelephone Encounter - Mackenzie Woods - 01/20/2024 11:14 AM EDT Note Date & Type Note Facility 01-13-2025 History of Present illness Narrative Images from the original note were not included. [address] [place] [address] SUBJECTIVE: Patient ID: Gabriel Harman is a 64 y.o. male. Chief Complaint Patient presents with well person Presents for yearly annual exam He is . Quit smoking over 3 years ago Works full-time as a cdl team truck driver. 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 Offers no complaints today. The following portions of the patient's history were reviewed and updated as appropriate: allergies, current medications, past family history, past medical history, past social history, past surgical history and problem list. Past Surgical History: Procedure Laterality Date COLONOSCOPY COLONOSCOPY N/A 02/01/2023 Performed by Jose Puckett DO at [facility] TONSILLECTOMY Past Medical History: Diagnosis Date [...] bruise/bleed easily. Psychiatric/Behavioral: Negative. PHYSICAL EXAMINATION: Vitals: 01/13/25 1556 BP: 128/80 BP Site: Left Arm BP Postition: Sitting BP CUFF SIZE: M (9-13 inches) Pulse: 68 Resp: 18 Temp: 36.6 C (97.8 F) TempSrc: Tympanic SpO2: 94% Weight: 74.3 kg (163 lb 12.8 oz) Height: 182.9 cm (6' 0.01 ) Patient noted to have elevated BMI and the following intervention(s) were applied: encouragement to exercise. Physical Exam Vitals and nursing note reviewed. [...] normal. ASSESSMENT/PLAN: Gabriel was seen today for well person. Diagnoses and all orders for this visit: Annual physical exam Encounter for screening for malignant neoplasm of prostate - Prostatic specific antigen screen; Future Blood tests for routine general physical examination - Comprehensive metabolic panel; Future - CBC auto differential; Future - Lipid profile; Future - Hemoglobin A1c; Future Need for hepatitis C screening test - Hepatitis C(HCV) Ab w/ Reflex to PCR; Future Colonoscopy screening discussed today. Risk and benefits of procedure explained. Patient had colonoscopy 2022. Recommendations repeat in 3 years. Body mass index is 22.21 kg/m . Healthy ideal body weight Wellness labs ordered. Patient will complete as outpatient. ALL QUESTIONS ANSWERED Total time spent was 30 minutes: Preparing to see the patient (e.g., review of tests) Obtaining and/or reviewing separately obtained history Performing a medically appropriate examination and/or evaluation Counseling and educating the patient/family/caregiver Ordering medications, tests, or procedures Follow-up: 1 year CHELLE Jin 01/13/25 [id number] documented in this encounter [facility] [employer] [facility] 11-06-2024 Note Patient Education Oncology Prostate Cancer Screening [...] Where to find more information ??? The [place] [employer]: www.cancer.org ??? [place] [employer]: www.auanet.org Contact a health care [...] The prostate gland (more content not included)... [facility] 08-10-2024 Hospital Discharge instructions Patient Education 08/10/2024 [...] treatment? Where to find more information The [place] [employer]: www.cancer.org [place] [employer]: www.auanet.org Contact a health care [...] provider. Document Revised: 02/12/2022 Document Reviewed: 02/12/2022 [employer] Patient Education 2023 [employer] Follow Up Care 06/30/2024 08:36:41 With:HAYLEY ROSE, All Gaines, URL Address: [facility] [place] [id number]- When: Unknown [facility] 08-10-2024 Note Patient Education Oncology Prostate Cancer [...] Where to find more information ??? The [place] [employer]: www.cancer.org ??? [place] [employer]: www.auanet.org Contact a health care [...] The prostate gland (more content not included)... [facility] 01-20-2024 Miscellaneous Notes ----- Message from CHELLE Jin sent at 01/20/2024 9:47 AM EDT ----- Reviewed. Inform patient cholesterol and LDL (bad cholesterol) is mildly elevated. Consider a diet lower in cholesterol and fats. Increase daily fiber intake. Patient notified and understands documented in this encounter [facility] [employer] [facility] 01-20-2024 Telephone encounter Note ----- Message from CHELLE Jin sent at 01/20/2024 9:47 AM EDT ----- Reviewed. Inform patient cholesterol and LDL (bad cholesterol) is mildly elevated. Consider a diet lower in cholesterol and fats. Increase daily fiber intake. [facility] [employer] [facility] 01-20-2024 Telephone encounter Note Patient notified and understands [facility] 01-08-2024 History of Present illness Narrative Images from the original note were not included. [place] [address] SUBJECTIVE: Patient ID: Gabriel Harman is a [...] 02/01/2023 Performed by Jose Puckett DO at [facility] Past Medical History: Diagnosis Date [...] procedures Follow-up: One year CHELLE Jin 01/08/24 [id number] documented in this encounter [facility] 07-26-2023 Hospital Discharge instructions Patient Education 07/26/2023 [...] urethra. Follow these instructions at home: Take awao-ddu-fjkrefx and prescription medicines only as told by [...] provider. Document Revised: 03/07/2022 Document Reviewed: 03/07/2022 [employer] Patient Education 2022 [employer]. Follow Up Care 03/02/2022 10:24:32 With:All HARDY MD, URL Address: [address] [place], [place] [id number]- When:Within 1 Year(s) Comments:w/PSA and KUB [facility] Evaluation + Plan note No data available for this section [facility] Evaluation + Plan note Future Appointments Appointment Date:08/09/2025 08:15:00 AM Scheduled Provider:All HARDY MD Location:[facility] hospital Appointment Type:URO Office Visit Diagnostic Tests PendingPSA Free & Total 08/10/24 [facility] Evaluation note Diagnosis Annual physical exam- Primary Routine general medical examination at a health care facility Blood tests for routine general physical examination Laboratory examination ordered as part of a routine general medical examination Encounter for screening for malignant neoplasm of prostate documented in [facility]* Diagnosis Annual physical exam- Primary Routine general medical examination at a health care facility Encounter for screening for malignant neoplasm of prostate Blood tests for routine general physical examination Laboratory examination ordered as part of a routine general medical examination Need for hepatitis C screening test Special screening examination for other specified viral diseases documented in this encounter [facility] SystemInstructions* Attachments The following attachments cannot be sent through Care Everywhere. * Yearly Physical for Adults ([place]) * Prostate cancer screening (PSA tests) ([place]) documented [facility] SystemInstructionsNot on file documented in this encounterProOhio[facility] HospitalInstructions* Attachments The following attachments cannot be sent through Care Everywhere. * Walking for health ([place]) * Routine physical for adults ([place]) documented in this encounterProTri[facility] SystemProgress note No data available for this section [facility] Ehsan Summary Purpose Family History No Family History Records Found No data available for this section No data available for this section No Family History Records FoundNo Family History Records Found Advance Directives No Advanced Directives Records FoundNo Advanced Directives Records FoundNo Advanced Directives Records Found Additional Source Comments (unrecognized sect ion and content) No Status Records FoundNo Status Records FoundNo Status Records Found INFORMATION SOURCE (unrecogn ized section and content) DATE CREATED AUTHOR 03/31/2022 [facility] DATE CREATED AUTHOR AUTHOR'S ORGANIZ ATION 01/15/2025 [facility] DATE CREATED AUTHOR AUTHOR'S ORGANIZ ATION 04/17/2025 [facility] Patient Care team informatio n (unrecognized section and content) Lac[employer] Relationship Specialty Start Date End Date Vladimir Jordan APRN-LUIGI [address] [place] [id number] PCP - General Family Medicine 07/18/22 [employer] Relationship Specialty Start Date End Date Vladimir Jordan APRN-CNP [address] [place] [id number] PCP - General Family Medicine 07/18/22 [employer] Relationship Specialty Start Date End Date Vladimir Jordan, NGUYEN-BITUMINOUS PAVING MACHINE OPERATOR [address] [place] [phone] PCP - General Family Medicine 07/18/22 Reason for Visit (unrecogniz ed section and content) Reason Comments Annual Exam Reason Comments well person FOR RECORDS PERTAINING TO PATIENTS WHO ARE [...] BE BASED ON THE PRIMARY CLINICAL RECORDS. [facility] [employer] [facility]. provides no warranty or guarantee of the accuracy or completeness of information in this document.
[2025-05-13 12:10] LABS: PSA, Free 0.12 ng/mL
== END 2025-05-12 08:05 | disposition home or self-care (01) ==
LOC: LAB 08:06
PROVIDERS: PCP Nurse Practitioner; Visit Provider Nurse Practitioner Family
DX: R97.20 Elevated prostate specific antigen [PSA] (principal)
CPT/HCPCS: 36415; 84153; 84154